=== PATIENT | male | born 1970 | race African-American/Black ===

== ENCOUNTER → 2018-08-22 | Outpatient (CLI) | payer OTHER ==
[~2018-08-22] MED LIST: CONRAY-43 43% 50ML VIAL (Q9960) As Ordered ONE; EXCETAB80 PO; GLUC750T22 PO; LISI40TA52 PO; MAPA500T2 PO; MOBI4TAB PO; OMEG100011 PO; PROHANCE 279.3MG/ML 5ML VIAL (A9576) As Ordered ONE
--- NOTE | 2018-08-22 16:54 | REP ---
MR arthrogram left hip: History: Pain in the left hip. History of labral tear. Comparison study August 04, 2014. Comparison MRI arthrography left hip is from August 04, 2014. Technique: Precontrast imaging includes coronal T1 and T2-weighted scans of both hips. Postcontrast small field of view high resolution axial, coronal and sagittal images are acquired in T1 and T2-weighted scans with fat saturation. MR arthrographic findings: Cortical and medullary bone signal intensity are normal in the proximal femurs bilaterally on pre injection imaging. There is no evidence to suggest avascular necrosis. No significant joint effusion is seen on either side. There is subcortical cyst formation in the acetabular region superiorly on both sides consistent with arthritis associated subcortical cyst formation. These are more pronounced or larger on the right than was present on the prior study and slightly more prominent on the left as well . The ligamentum teres is intact. The visualized bony pelvic ring is unremarkable. Post injection imaging shows good filling and enhancement of the left hip articulation. There is an unfortunate artifact extending through the superior labrum on oblique coronal T1-weighted fat sat images post injection. There is again noted to be some articular cartilage fraying in the superior labrum but no héctor tear is felt to be present allowing for the artifact. The fraying of the articular cartilage appears slightly more prominent than on the 2015 prior study. No loose body is apparent. Head neck junction morphology is felt to be normal. There is no evidence of juxta-articular mass. There is a small quantity of T2 hyperintensity adjacent to the greater trochanter on both sides on T2-weighted images. This may reflect some degree of tendonitis. Impression: Irregular fraying of the undersurface of the superior articular labral cartilage slightly more prominent than the prior study. 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 These have increased in extent and size on both sides. Electronically Signed by Omega Winn MD 08/22/2018 06:41 P
--- NOTE | 2018-09-01 09:42 | REP ---
Reason For Exam/Comment: Left hip pain, history labral tear Procedure: Left hip MRI arthrogram The procedure was performed by QUINTEN Singer, under the direct supervision of Dr. Winn. The benefits and risks including but not limited to pain, infection, bleeding and anaphylaxis were explained to the patient and informed consent was obtained both verbally and written. Directly prior to the start of the procedure, a formal timeout was completed in the procedure room. Technique: The left femoral neck was localized using fluoroscopic guidance. The skin was prepped and draped in the usual sterile fashion. 5 mL of 1% lidocaine was used as a local anesthetic. Using fluoroscopic guidance a 22-gauge spinal needle was inserted and advanced to the left femoral neck joint space . 1 mL of Conray 43 was injected to verify needle placement. 12 mL of a solution containing 20 ml of sterile saline and a 0.15 ml of ProHance was injected into the joint. The needle was removed and the patient was taken MRI for post procedural imaging. The patient tolerated the procedure well and there were no immediate complications. 0.1 minutes of fluoroscopy time was utilized for this procedure. Some fluoroscopic images are performed with last image hold technology. These images require no additional radiation. Reviewed by QUINTEN Caicedo 09/01/2018 08:18 A Electronically Signed by Omega Winn MD 09/01/2018 09:34 A
== END ==
LOC: M RADPRO 13:30
PROVIDERS: ATTEND Student in an Organized Health Care Education/Training Program
DX: M24.152 Other articular cartilage disorders, left hip (principal); M16.2 Bilateral osteoarthritis resulting from hip dysplasia; M25.552 Pain in left hip
CPT/HCPCS: 27093; 73723; 77002; A9576; Q9960

== ENCOUNTER 2018-11-25 11:06 | Emergency (ER) | payer OTHER, MEDICAID ==
[~2018-11-25] VITALS: Ht 180.3 cm; Wt 90.7 kg
[~2018-11-25 11:06] MED LIST changes: -CONRAY-43 43% 50ML VIAL (Q9960) As Ordered ONE; -PROHANCE 279.3MG/ML 5ML VIAL (A9576) As Ordered ONE
[2018-11-25] MEDS ORDERED: LISI20TA19 (11:12)
[2018-11-25] MEDS ORDERED: DIVA500T94 (11:12)
[2018-11-25 14:16] LABS: BASO % 0.6 % (0.0-1.0); EOS # 0.1 10^3/uL (0.0-0.5); EOS % 2.8 % (0.0-3.0); HEMATOCRIT 43.7 % (42.0-52.0); HEMOGLOBIN 14.7 g/dl (13.5-17.5); LYMPH # 1.3 10^3/uL (1.5-5.0); LYMPH % 35.6 % (24.0-44.0); MEAN CORPUSCULAR HEMOGLOBIN 27.1 pg (27.0-33.0); MEAN CORPUSCULAR HGB CONC 33.6 g/dl (32.0-36.5); MEAN CORPUSCULAR VOLUME 80.5 fl (80.0-96.0); MONO # 0.4 10^3/uL (0.0-0.8); MONO % 10.3 % (0.0-5.0); NEUTROPHILS # 1.8 10^3/uL (1.5-8.5); NEUTROPHILS % 50.4 % (36.0-66.0); PLATELET COUNT, AUTOMATED 153 10^3/uL (150-450); RED BLOOD COUNT 5.43 10^6/uL (4.30-6.10); WHITE BLOOD COUNT 3.6 10^3/uL (4.0-10.0)
--- NOTE | 2018-11-25 14:34 | REP ---
Chest x-ray: Two views. History: Persistent shortness of breath times 1 month . Comparison study: 09/16/2015 . Findings: The lungs are well inflated and free of infiltrate. The pleural angles are sharp. The heart size is normal. Pulmonary vasculature is not increased. No significant bony abnormality is seen. Impression: No active disease. Electronically Signed by Omega Winn MD 11/25/2018 02:26 P
[2018-11-25 14:38] LABS: ALBUMIN 4.3 GM/DL (3.2-5.2); ALT/SGPT 36 U/L (12-78); BILIRUBIN,TOTAL 0.4 MG/DL (0.2-1.0); BLOOD UREA NITROGEN 14 MG/DL (7-18); CALCIUM LEVEL 9.3 MG/DL (8.5-10.1); CARBON DIOXIDE LEVEL 31 MEQ/L (21-32); CHLORIDE LEVEL 103 MEQ/L (98-107); CK-MB VALUE MASS < 1.0 NG/ML (<3.6); CPK CREATINE PHOSPHOKINASE 155 U/L (39-308); CREATININE FOR GFR 1.17 MG/DL (0.70-1.30); GLOMERULAR FILTRATION RATE > 60.0 (>60); GLUCOSE, FASTING 79 MG/DL (70-100); MB/CK RELATIVE INDEX 0.65 (< OR =4); POTASSIUM SERUM 3.8 MEQ/L (3.5-5.1); SODIUM LEVEL 139 MEQ/L (136-145); TOTAL PROTEIN 7.5 GM/DL (6.4-8.2); TROPONIN I < 0.02 NG/ML (< 0.10)
[2018-11-25] MEDS ORDERED: VENTAER INH (15:02)
[2018-11-25 15:05] VITALS: BP 156/86
--- NOTE | 2018-11-26 07:34 | ECGEPIP ---
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
== END 2018-11-25 15:29 | disposition home or self-care (01) ==
LOC: M ED 11:06
DX: R06.02 Shortness of breath (principal); I10 Essential (primary) hypertension; Z79.899 Other long term (current) drug therapy

== ENCOUNTER → 2019-01-14 | Outpatient (CLI) | payer OTHER ==
[~2019-01-14] MED LIST changes: +DIVA500T94; +LISI20TA19; +VENTAER INH
--- NOTE | 2019-01-15 21:01 | ECHO ---
DATE OF PROCEDURE: 01/14/2019 Date of : 1970 Age: 49 Gender: Male Height: 71 inches Weight: 189 pounds Body surface area: 2.06 meters squared Outpatient. REFERRING PROVIDER: ELIANA Tony INDICATION: Dyspnea. MEASUREMENTS: 2D Measurements: RV: 3.1 cm LV: 4.4 cm Septum: 1.1 cm Posterior wall: 1.1 cm Aortic root: 3.0 cm LA: 3.7 cm LVEF: 75% Doppler Measurements: AV: 1.4 meters per second LVOT: 1.3 meters per second LVOT diameter: 2.1 cm MV-E: 76, A: 64, EA ratio: 1.2 Early mitral deceleration time: 176 milliseconds E prime: 7.7, A prime: 8.1, E/E prime ratio: 9.8 PV: 1.0 meters per second Pulmonary artery acceleration time: 134 milliseconds PASP: 22 mmHg IVC: 1.7 cm COMMENTS: Normal sinus rhythm without intraventricular conduction disturbance. M-mode and two-dimensional echocardiography was performed with pulsed, continuous wave, color flow and tissue Doppler studies. Normal left ventricular size, wall thickness and hyperkinetic wall motion. Normal left atrial size and Doppler assessment of LV diastolic function and estimated mean left atrial pressure. Normal right heart chamber sizes and motion and estimated pulmonary arterial pressure. Normal inferior vena cava (IVC) size and collapse against an elevated central venous pressure. Normal appearing and functioning valvular structures. Normal aortic root diameters. No apparent intracardiac mass or pericardial effusion.
== END ==
LOC: M CARPUL 08:14
PROVIDERS: ATTEND Physician Assistant Medical
DX: R06.00 Dyspnea, unspecified (principal)

== ENCOUNTER 2019-02-12 15:03 | Emergency (ER) | payer OTHER ==
[~2019-02-12] VITALS: Ht 180.3 cm; Wt 93.8 kg
[2019-02-12] MEDS ORDERED: ZONI25CA2 PO (15:10)
[2019-02-12] MEDS ORDERED: EXCETAB33 PO (15:10)
[2019-02-12] MEDS ORDERED: KETOROLAC 30 MG/ML VIAL (J1885) IV ONE (16:45)
[2019-02-12] MEDS ORDERED: METOCLOPRAMIDE INJ 10MG/2ML VIAL (J2765) IV ONE (16:45)
[2019-02-12] MEDS ORDERED: ACETAMINOPHEN 325 MG TAB PO ONE (16:45)
[2019-02-12] MEDS ORDERED: NS 1,000 ML IV ONE (17:00)
[2019-02-12 17:38] LABS: BASO % 0.5 % (0.0-1.0); EOS # 0.3 10^3/uL (0.0-0.5); HEMATOCRIT 43.2 % (42.0-52.0); HEMOGLOBIN 14.4 g/dl (13.5-17.5); LYMPH # 1.2 10^3/uL (1.5-5.0); LYMPH % 31.3 % (24.0-44.0); MEAN CORPUSCULAR HEMOGLOBIN 26.8 pg (27.0-33.0); MEAN CORPUSCULAR HGB CONC 33.3 g/dl (32.0-36.5); MEAN CORPUSCULAR VOLUME 80.3 fl (80.0-96.0); MONO # 0.2 10^3/uL (0.0-0.8); MONO % 5.9 % (0.0-5.0); NEUTROPHILS # 2.1 10^3/uL (1.5-8.5); PLATELET COUNT, AUTOMATED 141 10^3/uL (150-450); RED BLOOD COUNT 5.38 10^6/uL (4.30-6.10); WHITE BLOOD COUNT 3.7 10^3/uL (4.0-10.0)
[2019-02-12 17:55] LABS: BLOOD UREA NITROGEN 10 MG/DL (7-18); C REACTIVE PROTEIN QUANTITATIV < 0.30 MG/DL (0.00-0.30); CALCIUM LEVEL 9.3 MG/DL (8.5-10.1); CARBON DIOXIDE LEVEL 27 MEQ/L (21-32); CHLORIDE LEVEL 107 MEQ/L (98-107); CREATININE FOR GFR 1.15 MG/DL (0.70-1.30); ERYTHROCYTE SEDIMENTATION RATE 3 mm/hr (0-20); GLOMERULAR FILTRATION RATE > 60.0 (>56); GLUCOSE, FASTING 122 MG/DL (70-100); POTASSIUM SERUM 3.6 MEQ/L (3.5-5.1); SODIUM LEVEL 140 MEQ/L (136-145)
[2019-02-12 18:41] VITALS: BP 128/80
== END 2019-02-12 19:02 | disposition home or self-care (01) ==
LOC: M ED 15:03
DX: G43.909 Migraine, unspecified, not intractable, without status migrainosus (principal); Z79.51 Long term (current) use of inhaled steroids; Z79.82 Long term (current) use of aspirin
CPT/HCPCS: 80048; 85025; 85652; 86140; 96361; 96374; 96375; 99284; J1885; J2765

== ENCOUNTER → 2019-05-07 | Outpatient (CLI) | payer OTHER ==
[~2019-05-07] MED LIST changes: +EXCETAB33 PO; +METHACHOLINE KIT (J7674) INH ONE; +ZONI25CA13 PO
--- NOTE | 2019-05-07 09:46 | PFTRPT ---
Site: [facility], [address] [place], [address] ID: [id number] Name: DAJUAN BARRAGAN Visit Date: 05/07/2019 Second ID: [id number] Referring Doctor: BLACK Moscoso Marcus, M Reviewing Doctor: Trip Christy MD [place] Operator: Sveta PRATER RRT Age: 49 : 1970 Sex: Male Race: Black Height: 69.00 Inches Weight: 198.00 Lbs BSA: 2.06 Order IDs: [id number] Requested Test(s): <RESP-PFT.METH CHAL> Diagnosis: R06.00 puffs of albuterol for post bronchodilator. Review Status: Not Reviewed Pre-Bronch Post-Bronch Pred Actual %Pred Actual %Chng SPIROMETRY FVC (L) 4.04 4.05 100 3.95 -2 FEV1 (L) 3.23 3.45 106 3.25 -5 FEV1/FVC (%) 80 85 106 82 -3 FEF 25% (L/sec) 7.75 8.41 108 8.48 FEF 50% (L/sec) 5.00 4.87 97 5.18 6 FEF 75% (L/sec) 1.67 1.60 96 1.88 17 FEF 25-75% (L/sec) 3.23 4.06 125 4.63 13 FEF Max (L/sec) 8.57 10.25 119 8.48 -17 FIVC (L) 3.78 3.99 5 FIF 50% (L/sec) 4.97 5.09 102 4.09 -19 FIF Max (L/sec) 5.17 4.44 -14 Expiratory Time (sec) 6.28 6.31 Back Extrap Vol (L) 0.09 0.30 229 Time To FEFmax (sec) 0.051 0.115 126
== END ==
LOC: M CARPUL 08:37
PROVIDERS: ATTEND Physician Assistant
DX: R06.00 Dyspnea, unspecified (principal)
CPT/HCPCS: 94070; J7674

== ENCOUNTER → 2019-05-29 | Outpatient (CLI) | payer OTHER ==
[~2019-05-29] MED LIST changes: -METHACHOLINE KIT (J7674) INH ONE
--- NOTE | 2019-05-29 14:42 | REP ---
CT CHEST WITHOUT IV CONTRAST: CT chest performed without IV contrast. Sagittal and coronal reconstruction images are performed. Comparison is made with prior chest radiographs 11/25/2018. There is mild scattered fibrotic scarring throughout both lungs with no consolidation. There is no pulmonary edema or infiltrate. The heart is not enlarged. There is no pleural or pericardial effusion. No mediastinal or axillary adenopathy is seen. Thoracic aorta is normal in caliber. Visualized upper abdominal structure are unremarkable. Visualized osseous structures are unremarkable. IMPRESSION: Very mild scattered fibrotic scarring bilaterally. No other significant abnormality. Electronically Signed by Harshil Watson MD 05/29/2019 11:19 P
== END ==
LOC: M RAD 10:46
PROVIDERS: ATTEND Physician Assistant
DX: R91.8 Other nonspecific abnormal finding of lung field (principal); R06.00 Dyspnea, unspecified

== ENCOUNTER → 2020-04-22 | Outpatient (CLI) | payer OTHER ==
[~2020-04-22] MED LIST changes: -LISI20TA19; +LISI20TA35
--- NOTE | 2020-04-22 13:25 | REP ---
INDICATION: PAIN IN RIGHT WRIST. COMPARISON: None. TECHNIQUE: Three views of the right wrist are obtained. FINDINGS: Three views of the right wrist demonstrate overall normal mineralization. Joint spaces are preserved. Periarticular soft tissues are unremarkable. No fracture or subluxation is seen. IMPRESSION: Negative radiographs of the right wrist. <Electronically signed by Anton Winn > 04/22/20 [id number]
== END ==
LOC: M SOG 08:59
PROVIDERS: ATTEND Orthopaedic Surgery Sports Medicine
DX: M25.531 Pain in right wrist (principal)

== ENCOUNTER → 2020-05-25 | Outpatient (CLI) | payer OTHER ==
[~2020-05-25] MED LIST changes: +ISOVUE-300 61% 50ML VIAL As Ordered ONE; +PROHANCE 279.3MG/ML 5ML VIAL As Ordered ONE
--- NOTE | 2020-05-25 10:04 | REP ---
INDICATION: RT WRIST PAIN ? ULNAR TEAR. COMPARISON: RADIOGRAPHS 04/22/2020. TECHNIQUE: Multiple sequences obtained in the axial, coronal and sagittal planes. Post arthrogram sequences obtained in the axial, coronal and sagittal planes with T1 fat saturation. FINDINGS: Triangular fibrocartilage: There is a tear of the triangular fibrocartilage complex near the radial insertion. Scapholunate and lunatotriquetral ligaments: Intact. Flexor and extensor tendons: Intact. There is a tiny amount of fluid surrounding the extensor carpi radialis tendons at the level of the distal radius, likely of no clinical significance. At that same level there is a small amount of fluid surrounding the flexor pollicis longus tendon and flexor digitorum profundus tendons possibly indicating a mild degree of tenosynovitis. Carpal tunnel region:At the level of the hamate there is mild anterior bowing of the flexor retinaculum and there is somewhat increased signal of the median nerve. These could be signs of carpal tunnel syndrome. No ganglion cyst is seen. Joint fluid: No effusion. Distal radioulnar joint: Small amount of fluid present. Bone marrow: No edema or occult fracture. There is a 2 mm cyst in the capitate bone. IMPRESSION: There is a tear of the triangular fibrocartilage complex near the radial insertion. Mild fluid surrounding the flexor pollicis longus tendon and flexor digitorum profundus tendons possibly indicating a mild degree of tenosynovitis. At the level of the hamate there is mild anterior bowing of the flexor retinaculum and there is somewhat increased signal of the median nerve. These could be signs of carpal tunnel syndrome. <Electronically signed by Harshil Watson > 05/25/20 1001
--- NOTE | 2020-05-25 17:44 | REP ---
INDICATION: RT WRIST PAIN ? ULNAR TEAR. COMPARISON: None TECHNIQUE: The procedure was performed by Nidhi Avery [facility], under the direct supervision of Dr. Watson. The benefits and risks of the procedure were explained to the patient, and an informed consent was obtained. Directly prior to the start of the procedure, a formal time-out was completed in the procedure room. The right radioscaphoid joint space was localized using fluoroscopic guidance. The skin was prepped and draped in a sterile fashion. Approximately 1 mL of 1% Lidocaine 10 mg/ml was used as a local anesthetic. Using fluoroscopic guidance, this same 25 gauge needle was inserted and advanced into the right radioscaphoid joint space. Approximately 0.5 mL of Isovue 300 was injected to verify placement. Approximately 5 mL of a solution containing 20 mL of sterile saline and 0.15 mL of ProHance was injected into the joint space. The needle was removed and the patient was taken to MRI for post procedural imaging. FINDINGS: The patient tolerated the procedure well and there were no immediate complications. IMPRESSION: 1. MRI arthrogram injection under fluoroscopic guidance of the right radioscaphoid joint space. 0.1 minutes of fluoroscopy time was utilized for this procedure. Some fluoroscopic images are performed with last image hold technology. These images require no additional radiation. <Electronically signed by Nidhi Avery > 05/25/20 1048 <Electronically signed by Harshil Watson > 05/25/20 0117
== END ==
LOC: M RADPRO 06:32
PROVIDERS: ATTEND Orthopaedic Surgery Sports Medicine
DX: M25.531 Pain in right wrist (principal); M67.80 Other specified disorders of synovium and tendon, unspecified site; S63.591A Other specified sprain of right wrist, initial encounter; X58.XXXA Exposure to other specified factors, initial encounter; Y92.89 Other specified places as the place of occurrence of the external cause; Y93.89 Activity, other specified; Y99.8 Other external cause status
CPT/HCPCS: 25246; 73223; 77002; A9576; Q9967

== ENCOUNTER → 2020-06-01 | Outpatient (CLI) | payer MEDICAID, OTHER, SELFPAY ==
[~2020-06-01] MED LIST changes: -ISOVUE-300 61% 50ML VIAL As Ordered ONE; -PROHANCE 279.3MG/ML 5ML VIAL As Ordered ONE
[2020-06-03 05:06] LABS: MUMPS VIRUS IgG ANTIBODY >300.0 AU/mL (Immune >10.9)
== END ==
LOC: M WUC 14:44
PROVIDERS: ATTEND Physician Assistant
DX: Z02.1 Encounter for pre-employment examination (principal)

== ENCOUNTER → 2020-06-06 | Outpatient (CLI) | payer MEDICAID, OTHER, SELFPAY ==
--- NOTE | 2020-06-07 09:34 | REP ---
INDICATION: TB SCREENING COMPARISON: 11/25/2018 TECHNIQUE: PA and lateral. FINDINGS: The mediastinum and cardiac silhouette are normal. The lung simmons are clear and without acute consolidation, effusion, or pneumothorax. The skeletal structures are intact and normal. IMPRESSION: No acute cardiopulmonary process. <Electronically signed by Doug Paniagua > 06/07/20 0922
== END ==
LOC: M WUC 14:21
PROVIDERS: ATTEND Physician Assistant
DX: Z11.1 Encounter for screening for respiratory tuberculosis (principal)

== ENCOUNTER → 2020-09-08 | Outpatient (REF) | payer OTHER ==
[2020-09-08 11:04] LABS: SEMEN APPEARANCE OPAQUE (OPAQUE); SEMEN VISCOSITY LIQUID (LIQUID); SEMEN VOLUME 5.8 ml (2.0-5.0); SPERM CONCENTRATION 73.5 M/ml (>=15.0); WBC CONCENTRATION <=1 M/ml (<=1 M/ml)
== END ==
LOC: M LAB REF 10:29
PROVIDERS: ATTEND Physician Assistant
DX: N52.9 Male erectile dysfunction, unspecified (principal)

== ENCOUNTER 2020-10-07 04:05 | Emergency (ER) | payer OTHER ==
[~2020-10-07] VITALS: Ht 180.3 cm; Wt 91.8 kg
[2020-10-07 06:58] LABS: BASO % 0.8 % (0.0-1.0); EOS # 0.1 10^3/uL (0.0-0.5); EOS % 3.3 % (0.0-3.0); HEMATOCRIT 40.9 % (42.0-52.0); HEMOGLOBIN 13.8 g/dl (13.5-17.5); LYMPH # 1.1 10^3/uL (1.5-5.0); LYMPH % 26.8 % (24.0-44.0); MEAN CORPUSCULAR HEMOGLOBIN 26.6 pg (27.0-33.0); MEAN CORPUSCULAR HGB CONC 33.7 g/dl (32.0-36.5); MONO # 0.4 10^3/uL (0.0-0.8); MONO % 10.5 % (2.0-8.0); NEUTROPHILS # 2.3 10^3/uL (1.5-8.5); NEUTROPHILS % 58.3 % (36.0-66.0); PLATELET COUNT, AUTOMATED 143 10^3/uL (150-450); RED BLOOD COUNT 5.18 10^6/uL (4.30-6.10)
[2020-10-07 07:37] LABS: ALBUMIN 3.8 GM/DL (3.2-5.2); ALT/SGPT 36 U/L (12-78); BILIRUBIN,DIRECT 0.1 MG/DL (0.0-0.2); BILIRUBIN,TOTAL 0.3 MG/DL (0.2-1.0); CK-MB VALUE MASS < 1.0 NG/ML (<3.6); CPK CREATINE PHOSPHOKINASE 162 U/L (39-308); LIPASE 128 U/L (73-393); MB/CK RELATIVE INDEX 0.62 (< OR =4); TROPONIN I < 0.02 NG/ML (< 0.10)
--- NOTE | 2020-10-07 07:59 | ECGEPIP ---
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
[2020-10-07 08:04] LABS: BLOOD UREA NITROGEN 11 MG/DL (7-18); CALCIUM LEVEL 8.8 MG/DL (8.5-10.1); CARBON DIOXIDE LEVEL 28 MEQ/L (21-32); CHLORIDE LEVEL 105 MEQ/L (98-107); CREATININE FOR GFR 1.16 MG/DL (0.70-1.30); FREE T4 0.95 NG/DL (0.76-1.46); GLOMERULAR FILTRATION RATE > 60.0 (>56); GLUCOSE, FASTING 107 MG/DL (70-100); MAGNESIUM LEVEL 2.1 MG/DL (1.8-2.4); PHOSPHORUS LEVEL 3.1 MG/DL (2.5-4.9); POTASSIUM SERUM 3.9 MEQ/L (3.5-5.1); SODIUM LEVEL 138 MEQ/L (136-145)
--- NOTE | 2020-10-07 08:17 | REP ---
INDICATION: weakness. COMPARISON: 06/06/2020 TECHNIQUE: PA and lateral FINDINGS: The superior mediastinal structures are midline. The cardiac silhouette is unremarkable in size, shape, and position. The diaphragmatic surfaces of the lungs are regular, and the costophrenic angles are clear. The pulmonary simmons are clear. The imaged osseous structures are intact. IMPRESSION: There is no acute cardiopulmonary disease. <Electronically signed by Garry Collins > 10/07/20 0814
[2020-10-07 08:37] LABS: RSV AMPLIFICATION NEGATIVE (NEGATIVE)
[2020-10-07 09:44] VITALS: BP 133/87
== END 2020-10-07 09:52 | disposition home or self-care (01) ==
LOC: M ED 04:05
DX: R53.1 Weakness (principal); I10 Essential (primary) hypertension; J45.909 Unspecified asthma, uncomplicated; Z79.899 Other long term (current) drug therapy; Z79.82 Long term (current) use of aspirin

== ENCOUNTER 2021-01-14 09:59 | Emergency (ER) | payer OTHER ==
[~2021-01-14] VITALS: Ht 180.3 cm; Wt 93.8 kg
--- OUTSIDE RECORDS SUMMARY | 2021-01-14 10:06 | CCD | Continuity of Care Document ---
Author Author Luisito BERNARD M.D. Organization Unknown Address [address], [place] [address] Phone [phone] Care Team Providers Care Hands Parter Name Role Phone [facility] [phone] Problems Active Problems Provider Date Essential hypertension Robb Bernard M.D. Onset: 06/26 Uncomplicated moderate persistent asthma Robb Bernard M.D. Onset: 07/19/2020 Allergic rhinitis due to house dust mite Robb Bernard M.D. Onset: 07/19/2020 Note: 4++ reaction to dust mites and tanika kroaches on intradermal test. Allergic rhinitis due to animals Robb Bernard M.D. O nset: 07/19/2020 Note: 3+ positive reaction to cat dande r and dog dander on intradermal test. Allergic rhinitis due to pollen Robb Bernard M.D. On set: 07/19/2020 Note: 4+ positive reaction to ragweed po llen, weed pollen, tree mix #1 (birch, oak, maple) and tree mix #2 (karmen, cottonwood, elm, pine) on intradermal test. Social History Type Date Description Comments Sex Unknown Tobacco Use Reviewed: 11/21/20 Patient has never smoked Smoking Status Reviewed: 11/21/20 Patient has never smoked Allergies, Adverse Reactions, Alerts Description No Known Drug Allergies Medications Active Medications SIG Qnty Indications Ordering Provide r Date Fluticasone Propionate 50mcg/Act Suspension spray 2 sprays (100 mcg) in each nostril by intranasal route once daily in the evening 48gm J30.89 Robb Bernard M.D. 2020 Montelukast Sodium 10mg Tablets Take 1 tablet once daily Unknown Lisinopril-Hydrochlorothiazide 20-12.5mg Tablets Take 1 tablet once daily Unknown Meloxicam 15mg Tablets Take 1 tablet once daily as needed Unknown Zonisamide 50mg Capsules Take 1 capsule once daily Unknown Ergocalciferol 1.25mg (24161 Ut) C apsules Unknown Symbicort 160-4.5mcg/Act Aerosol inhale 2 puffs twice daily Unknown Proair HFA 108(90Base) mcg/Act Aer osol inhale 2 puffs every 4-6 hours as needed Unknown Immunizations Description No Information Available Vital Signs Date Vital Result Comment 11/21/2020 10:01am Weight 202.25 lb Height 68.5 inches 5'8.50" Heart Rate 62 /min Respiratory Rate 18 /min BP Systolic 126 mmHg BP Diastolic 78 mmHg BMI (Body Mass Index) 30.3 kg/m2 07/19/2020 8:39am Weight 210.50 lb Height 68.5 inches 5'8.50" Heart Rate 64 /min Respiratory Rate 18 /min BP Systolic 140 mmHg BP Diastolic 89 mmHg BMI (Body Mass Index) 31.5 kg/m2 Results Description No Information Available Procedures Date Code Description Status 11/21/2020 77204 Office/Outpatient Established Lo w MDM 20-29 Min Completed 11/21/2020 07926 Bronchodilation Resp onsiveness Spirometry Pre/Post Bronchodil Adm Completed 07/19/2020 88304 Office/Outpatient New Moderate M DM 45-59 Minutes Completed 07/19/2020 43717 Office/Outpatient New Low MDM 30 -44 Minutes Completed 07/19/2020 67167 Allergy Tests Intrad ermal W/ Allergenic Extr Immediate Reaction Completed 07/19/2020 20399 Allergy Tests Percutaneous W/ Al lergenic Extracts Completed Medical Devices Description No Information Available Encounters Type Date Location Provider Dx Diagnosis Office Visit 11/21/2020 10:00a Main Office Robb Bernard M.D. J30.89 Other allergic rhinitis J30.81 Allergic rhinitis due to ani mal (cat) (dog) hair and dander J30.1 Allergic rhinitis due to ezekiel padmini J45.40 Moderate persistent asthma, uncomplicated Assessments Date Code Description Provider 11/21/2020 J30.89 Allergic rhinitis due to house d ust mite Robb Bernard M.D. 11/21/2020 J30.81 Allergic rhinitis due to animals Robb Bernard M.D. 11/21/2020 J30.1 Allergic rhinitis due to pollen Robb Bernard M.D. 11/21/2020 J45.40 Moderate persistent asthma, unco mplicated Robb Bernard M.D. Plan of Treatment Future Appointment(s):* 05/22/2021 3:30 pm - Robb Bernard M.D. at Main Office 11/21/2020 - Robb Bernard M.D.* J30.89 Allergic rhinitis due to house dust mite* Recommendations:* Effective allergen avoidance measures were reviewed and discussed. If his rhinitis symptoms become more persistent, it was recommended that he use Flonase nasal spray on a consistent, daily basis every evening for it to be effective. He should continue on daily Singulair as directed. Singulair should help not only with his asthma, but also with the nasal congestion associated with his allergic rhinitis. Risks/benefits associated with the use of Singulair were reviewed and discussed. He may use oral antihistamine as needed for itching and/or sneezing. Allergen immunotherapy may be considered if his symptoms fail to adequately respond to the treatment regimen as outlined. * J30.81 Allergic rhinitis due to animals* Recommendations:* Effective allergen avoidance measures reviewed and recommended. See additional recommendations above. * J30.1 Allergic rhinitis due to pollen* Recommendations:* Effective allergen avoidance measures were reviewed and recommended. See additional recommendations above. * J45.40 Moderate persistent asthma, uncomplicated* Recommendations:* Continue on present regimen as directed by pulmonology. Follow-up with their office as directed. * All * Follow up:* 6 months. Sooner if needed. Functional Status Description No Information Available Mental Status Description No Information Available Referrals Refer to Reason for Referral Status Appt Date Robb Bernard M.D. Created [address], [place] [address] [phone]
--- OUTSIDE RECORDS SUMMARY | 2021-01-14 10:06 | CCD | Continuity of Care Document ---
Author Author Luisito BERNARD M.D. Organization Unknown Address [address], [place] [address] Phone [phone] Care Team Providers Care It Operations Analyst Name Role Phone [facility] Problems Active Problems Provider Date Essential hypertension [...] 1 capsule once daily Unknown Ergocalciferol 1.25mg (39489 Ut) C apsules Unknown Symbicort 160-4.5mcg/Act Aerosol [...] Available Procedures Date Code Description Status 11/21/2020 62170 Office/Outpatient Established Lo w MDM 20-29 Min Completed 11/21/2020 93145 Bronchodilation Resp onsiveness Spirometry Pre/Post Bronchodil Adm Completed 07/19/2020 56931 Office/Outpatient New Moderate M DM 45-59 Minutes Completed 07/19/2020 31357 Office/Outpatient New Low MDM 30 -44 Minutes Completed 07/19/2020 40556 Allergy Tests Intrad ermal W/ Allergenic Extr Immediate Reaction Completed 07/19/2020 43934 Allergy Tests Percutaneous W/ Al lergenic Extracts [...] mplicated Robb Bernard M.D. Plan of Treatment 11/21/2020 - Robb Bernard M.D.* J30.89 Allergic rhinitis due to house dust mite * J30.81 Allergic rhinitis due to animals* [...] Status Appt Date Robb Bernard M.D. Created [address] [place] [id number] [phone]
--- OUTSIDE RECORDS SUMMARY | 2021-01-14 10:07 | CCD ---
Author Author [facility] Organization [facility] Address Unknown Phone Unavailable Care Team Providers Care Outer Diameter Technician Name Role Phone Leandro MCRAE Unavailable Unavailable LETTIERE, Leandro MONROY Unavailable Unavailable LETTIERE, Leandro MONROY Unavailable Unavailable LETTIERE, Leandro MONROY Unavailable Unavailable LETTIERE, Leandro MONROY Unavailable Unavailable LETTIERE, Leandro MONROY Unavailable Unavailable LETTIERE, Leandro MONROY Unavailable Unavailable LETTIERE, Leandro MONROY Unavailable Unavailable LETTIERE, A LEXY PA Unavailable Unavailable LETTIERE, A LEXY PA Unavailable Unavailable LETTIERE, A LEXY PA Unavailable Unavailable LETTIERE, A LEXY PA Unavailable Unavailable LETTIERE, A LEXY PA Unavailable Unavailable LETTIERE, A LEXY PA Unavailable Unavailable LETTIERE, A LEXY PA Unavailable Unavailable LETTIERE, A LEXY PA Unavailable Unavailable LETTIERE, A LEXY PA Unavailable Unavailable LETTIERE, A LEXY PA Unavailable Unavailable LETTIERE, A LEXY PA Unavailable Unavailable LETTIERE, A LEXY PA Unavailable Unavailable LETTIERE, A LEXY PA Unavailable Unavailable LETTIERE, A LEXY PA Unavailable Unavailable LETTIERE, A LEXY PA Unavailable Unavailable LETTIERE, A LEXY PA Unavailable Unavailable LETTIERE, A LEXY PA Unavailable Unavailable LETTIERE, A LEXY PA Unavailable Unavailable LETTIERE, A LEXY PA Unavailable Unavailable LETTIERE, A LEXY PA Unavailable Unavailable LETTIERE, A LEXY PA Unavailable Unavailable LETTIERE, A LEXY PA Unavailable Unavailable LETTIERE, A LEXY PA Unavailable Unavailable MANDO BERNARD MD Unavailable Unavailable CHRMANDO COLBERT MD Unavailable Unavailable MANDO BERNARD MD Unavailable Unavailable MANDO BERNARD MD Unavailable Unavailable CHROSTMANDO NORMAN MD Unavailable Unavailable CHROSTMANDO NORMAN MD Unavailable Unavailable CHRMANDO COLBERT MD Unavailable Unavailable CHROSTMANDO NORMAN MD Unavailable Unavailable CHRMANDO COLBERT MD Unavailable Unavailable CHROSTMANDO NORMAN MD Unavailable Unavailable CHROSTMANDO NORMAN MD Unavailable Unavailable CHROSTMANDO NORMAN MD Unavailable Unavailable CHROSTMANDO NORMAN MD Unavailable Unavailable CHROSTMANDO NORMAN MD Unavailable Unavailable CHROSTMANDO NORMAN MD Unavailable Unavailable CHROSTMANDO NORMAN MD Unavailable Unavailable CHROSTMANDO NORMAN MD Unavailable Unavailable CHROSTMANDO NORMAN MD Unavailable Unavailable CHROSTMANDO NORMAN MD Unavailable Unavailable CHROSTMANDO NORMAN MD Unavailable Unavailable CHROSTMANDO NORMAN MD Unavailable Unavailable CHROSTMANDO NORMAN MD Unavailable Unavailable CHROSTMANDO NORMAN MD Unavailable Unavailable CHROSTMANDO NORMAN MD Unavailable Unavailable CHROSTMANDO NORMAN MD Unavailable Unavailable CHROSTMANDO NORMAN MD Unavailable Unavailable CHROSTMANDO NORMAN MD Unavailable Unavailable CHROSTMANDO NORMAN MD Unavailable Unavailable CHROSTMANDO NORMAN MD Unavailable Unavailable CHROSTMANDO NORMAN MD Unavailable Unavailable CHROSTMANDO NORMAN MD Unavailable Unavailable CHRMANDO COLBERT MD Unavailable Unavailable CHRMANDO COLBERT MD Unavailable Unavailable CHRMANDO COLBERT MD Unavailable Unavailable CHRMANDO COLBERT MD Unavailable Unavailable CHRMANDO COLBERT MD Unavailable Unavailable CHRMANDO COLBERT MD Unavailable Unavailable CHRMANDO COLBERT MD Unavailable Unavailable CHRMANDO COLBERT MD Unavailable Unavailable MollisonLito MD Unavailable Unavailable Mollison, Lito Menard MD Unavailable Unavailable Mollison, Lito Menard MD Unavailable Unavailable Mollison, Lito Menard MD Unavailable Unavailable Mollison, Lito Menard MD Unavailable Unavailable MollisonLito MD Unavailable Unavailable Mollison, Lito Menard MD Unavailable Unavailable Mollison, Lito Menard MD Unavailable Unavailable Mollison, Lito Menard MD Unavailable Unavailable Mollison, Lito Menard MD Unavailable Unavailable Mollison, Lito Menard MD Unavailable Unavailable Mollison, Lito Menard MD Unavailable Unavailable Mollison, Lito Menard MD Unavailable Unavailable MollisonLito MD Unavailable Unavailable Mollison, Lito Menard MD Unavailable Unavailable Mollison, Lito Menard MD Unavailable Unavailable Mollison, Lito Menard MD Unavailable Unavailable Mollison, Lito Menard MD Unavailable Unavailable MollisonLito MD Unavailable Unavailable MollisonLito MD Unavailable Unavailable MollisonLito MD Unavailable Unavailable MollisonLito MD Unavailable Unavailable MollisonLito MD Unavailable Unavailable MollisonLito MD Unavailable Unavailable Mollison, Lito Menard MD Unavailable Unavailable Mollison, Lito Menard MD Unavailable Unavailable Mollison, Lito Menard MD Unavailable Unavailable MollisonLito MD Unavailable Unavailable MollisonLito MD Unavailable Unavailable MollisonLito MD Unavailable Unavailable Mark SURESH MD Unavailable Unavailable Mark SURESH MD Unavailable Unavailable Mark SURESH MD Unavailable Unavailable Mark SURESH MD Unavailable Unavailable Mark SURESH MD Unavailable Unavailable Mark SURESH MD Unavailable Unavailable Mark SURESH MD Unavailable Unavailable Mark SURESH MD Unavailable Unavailable Mark SURESH MD Unavailable Unavailable Mark SURESH MD Unavailable Unavailable Mark SURESH MD Unavailable Unavailable Mark SURESH MD Unavailable Unavailable Mark SURESH MD Unavailable Unavailable Mark SURESH MD Unavailable Unavailable Mark SURESH MD Unavailable Unavailable Mark SURESH MD Unavailable Unavailable Lakshmi Cheney Unavailable Unavailable Lakshmi Cheney Unavailable Unavailable Cheney, Lakshmi Isi PA Unavailable Unavailable Cheney, Lakshmi Isi PA Unavailable Unavailable Cheney, Lakshmi Isi PA Unavailable Unavailable Cheney, Lakshmi Isi PA Unavailable Unavailable Cheney, Lakshmi Isi PA Unavailable Unavailable Cheney, Lakshmi Isi PA Unavailable Unavailable Cheney, Lakshmi Isi PA Unavailable Unavailable Cheney, Lakshmi Isi PA Unavailable Unavailable Moorefield, Arnold MD Unavailable Unavailable Moorefield, Arnold MD Unavailable Unavailable Moorefield, Arnold MD Unavailable Unavailable Moorefield, Arnold MD Unavailable Unavailable Moorefield, Arnold MD Unavailable Unavailable Moorefield, Arnold MD Unavailable Unavailable Moorefield, Arnold MD Unavailable Unavailable Moorefield, Arnold MD Unavailable Unavailable Moorefield, Arnold MD Unavailable Unavailable Moorefield, Arnold MD Unavailable Unavailable Moorefield, Arnold MD Unavailable Unavailable Moorefield, Arnold MD Unavailable Unavailable Moorefield, Arnold MD Unavailable Unavailable Moorefield, Arnold MD Unavailable Unavailable Moorefield, Arnold MD Unavailable Unavailable Moorefield, Arnold MD Unavailable Unavailable Moorefield, Arnold MD Unavailable Unavailable Moorefield, Arnold MD Unavailable Unavailable Moorefield, Arnold MD Unavailable Unavailable Moorefield, Arnold MD Unavailable Unavailable Moorefield, Arnold MD Unavailable Unavailable Moorefield, Arnold MD Unavailable Unavailable Moorefield, Arnold MD Unavailable Unavailable Moorefield, Arnold MD Unavailable Unavailable Moorefield, Arnold MD Unavailable Unavailable Moorefield, Arnold MD Unavailable Unavailable Moorefield, Arnold MD Unavailable Unavailable Moorefield, Arnold MD Unavailable Unavailable Moorefield, Arnold MD Unavailable Unavailable Moorefield, Arnold MD Unavailable Unavailable Moorefield, Arnold MD Unavailable Unavailable OBEN, T MARJAN Unavailable Unavailable OBEN, T MARJAN Unavailable Unavailable OBEN, T MARJAN Unavailable Unavailable OBEN, T MARJAN MD Unavailable Unavailable OBEN, T MARJAN MD Unavailable Unavailable OBEN, T MARJAN MD Unavailable Unavailable OBEN, T MARJAN MD Unavailable Unavailable OBEN, T MARJAN MD Unavailable Unavailable OBEN, T MARJAN Unavailable Unavailable OBEN, T MARJAN MD Unavailable Unavailable OBEN, T MARJAN MD Unavailable Unavailable OBEN, T MARJAN MD Unavailable Unavailable OBEN, T MARJAN MD Unavailable Unavailable OBEN, T MARJAN MD Unavailable Unavailable OBEN, T MARJAN MD Unavailable Unavailable OBEN, T MARJAN MD Unavailable Unavailable OBEN, T MARJAN MD Unavailable Unavailable OBEN, T MARJAN MD Unavailable Unavailable OBEN, T MARJAN MD Unavailable Unavailable OBEN, T MARJAN MD Unavailable Unavailable OBEN, T MARJAN MD Unavailable Unavailable OBEN, T MARJAN MD Unavailable Unavailable OBEN, T MARJAN MD Unavailable Unavailable OBEN, T MARJAN MD Unavailable Unavailable OBEN, T MARJAN MD Unavailable Unavailable OBEN, T MARJAN MD Unavailable Unavailable OBEN, T MARJAN MD Unavailable Unavailable OBEN, T MARJAN MD Unavailable Unavailable OBEN, T MARJAN MD Unavailable Unavailable OBEN, T MARJAN MD Unavailable Unavailable OBEN, T MARJAN MD Unavailable Unavailable OBEN, T MARJAN MD Unavailable Unavailable OBEN, T MARJAN MD Unavailable Unavailable OBEN, T MARJAN MD Unavailable Unavailable OBEN, T MARJAN MD Unavailable Unavailable OBEN, T MARJAN MD Unavailable Unavailable OBEN, T MARJAN MD Unavailable Unavailable OBEN, T MARJAN MD Unavailable Unavailable OBEN, T MARJAN MD Unavailable Unavailable OBEN, T MARJAN MD Unavailable Unavailable OBEN, T MARJAN MD Unavailable Unavailable OBEN, T MARJAN MD Unavailable Unavailable OBEN, T MARJAN MD Unavailable Unavailable OBEN, T MARJAN MD Unavailable Unavailable OBEN, T MARJAN MD Unavailable Unavailable OBEN, T MARJAN MD Unavailable Unavailable OBEN, T MARJAN MD Unavailable Unavailable OBEN, T MARJAN MD Unavailable Unavailable OBEN, T MARJAN MD Unavailable Unavailable OBEN, T MARJAN MD Unavailable Unavailable OBEN, T MARJAN MD Unavailable Unavailable OBEN, T MARJAN MD Unavailable Unavailable OBEN, T MARJAN MD Unavailable Unavailable OBEN, T MARJAN MD Unavailable Unavailable OBEN, T MARJAN MD Unavailable Unavailable OBEN, T MARJAN MD Unavailable Unavailable OBEN, T MARJAN MD Unavailable Unavailable OBEN, T MARJAN MD Unavailable Unavailable OMI DANIO Unavailable Unavailable Mark SURESH MD Unavailable Unavailable Mark SURESH MD Unavailable Unavailable Mark SURESH MD Unavailable Unavailable Mark SURESH MD Unavailable Unavailable Mark SURESH MD Unavailable Unavailable Mark SURESH MD Unavailable Unavailable Mark SURESH MD Unavailable Unavailable Mark SURESH MD Unavailable Unavailable Mark SURESH MD Unavailable Unavailable Mark SURESH MD Unavailable Unavailable Mark SURESH MD Unavailable Unavailable Mark SURESH MD Unavailable Unavailable Mark SURESH MD Unavailable Unavailable Mark SURESH MD Unavailable Unavailable Mark SURESH MD Unavailable Unavailable Mark SURESH MD Unavailable Unavailable OBEN, T MARJAN MD Unavailable Unavailable OBEN, T MARJAN MD Unavailable Unavailable OBEN, T MARJAN MD Unavailable Unavailable OBEN, T MARJAN MD Unavailable Unavailable OBEN, T MARJAN MD Unavailable Unavailable OBEN, T MARJAN MD Unavailable Unavailable OBEN, T MARJAN MD Unavailable Unavailable OBEN, T MARJAN MD Unavailable Unavailable OBEN, T MARJAN MD Unavailable Unavailable OBEN, T MARJAN MD Unavailable Unavailable OBEN, T MARJAN MD Unavailable Unavailable OBEN, T MARJAN MD Unavailable Unavailable OBEN, T MARJAN MD Unavailable Unavailable OBEN, T MARJAN MD Unavailable Unavailable OBEN, T MARJAN MD Unavailable Unavailable OBEN, T MARJAN MD Unavailable Unavailable OBEN, T MARJAN MD Unavailable Unavailable OBEN, T MARJAN MD Unavailable Unavailable OBEN, T MARJAN MD Unavailable Unavailable OBEN, T MARJAN MD Unavailable Unavailable OBEN, T MARJAN MD Unavailable Unavailable OBEN, T MARJAN MD Unavailable Unavailable OBEN, T MARJAN MD Unavailable Unavailable OBEN, T MARJAN MD Unavailable Unavailable OBEN, T MARJAN MD Unavailable Unavailable OBEN, T MARJAN MD Unavailable Unavailable OBEN, T MARJAN MD Unavailable Unavailable OBEN, T MARJAN MD Unavailable Unavailable OBEN, T MARJAN MD Unavailable Unavailable OBEN, T MARJAN MD Unavailable Unavailable OBEN, T MARJAN MD Unavailable Unavailable OBEN, T MARJAN MD Unavailable Unavailable OBEN, T MARJAN MD Unavailable Unavailable OBEN, T MARJAN MD Unavailable Unavailable OBEN, T MARJAN MD Unavailable Unavailable OBEN, T MARJAN MD Unavailable Unavailable OBEN, T MARJAN MD Unavailable Unavailable OBEN, T MARJAN MD Unavailable Unavailable OBEN, T MARJAN MD Unavailable Unavailable OBEN, T MARJAN MD Unavailable Unavailable OBEN, T MARJAN MD Unavailable Unavailable OBEN, T MARJAN MD Unavailable Unavailable OBEN, T MARJAN MD Unavailable Unavailable OBEN, T MARJAN MD Unavailable Unavailable OBEN, T MARJAN MD Unavailable Unavailable OBEN, T MARJAN MD Unavailable Unavailable OBEN, T MARJAN MD Unavailable Unavailable OBEN, T MARJAN MD Unavailable Unavailable OBEN, T MARJAN MD Unavailable Unavailable OBEN, T MARJAN MD Unavailable Unavailable OBEN, T MARJAN MD Unavailable Unavailable OBEN, T MARJAN MD Unavailable Unavailable OBEN, T MARJAN MD Unavailable Unavailable OBEN, T MARJAN MD Unavailable Unavailable OBEN, T MARJAN MD Unavailable Unavailable OBEN, T MARJAN MD Unavailable Unavailable OBEN, T MARJAN MD Unavailable Unavailable OBEN, T MARJAN MD Unavailable Unavailable Re-disclosure Warning The records that you are about to access may contain information from federally-assisted alcohol or drug abuse programs. If such information is present, then the following federally mandated warning applies: This information has been disclosed to you from records protected by federal confidentiality rules (42 CFR part 2). The federal rules prohibit you from making any further disclosure of this information unless further disclosure is expressly permitted by the written consent of the person to whom it pertains or as otherwise permitted by 42 CFR part 2. A general authorization for the release of medical or other information is NOT sufficient for this purpose. The Federal rules restrict any use of the information to criminally investigate or prosecute any alcohol or drug abuse patient.The records that you are about to access may contain highly sensitive health information, the redisclosure of which is protected by Article 27-F of the [facility] Public Health law. If you continue you may have access to information: Regarding HIV / AIDS; Provided by facilities licensed or operated by the [facility] Office of Mental Health; or Provided by the [facility] Office for People With Developmental Disabilities. If such information is present, then the following [facility] mandated warning applies: This information has been disclosed to you from confidential records which are protected by state law. State law prohibits you from making any further disclosure of this information without the specific written consent of the person to whom it pertains, or as otherwise permitted by law. Any unauthorized further disclosure in violation of state law may result in a fine or usp sentence or both. A general authorization for the release of medical or other information is NOT sufficient authorization for further disc losure. Allergies and Adverse Reactions Type Description Substance Reaction Status Data Source(s ) No Known Drug Allergies No Known Drug Allergies [facility] Propensity to adverse reactions NO KNOWN ALLERGIES NO KNOWN ALLERGIES [facility] Encounters Encounter Providers Location Date Indications Data Source(s ) Outpatient Attender: MANDO BERNARD MD Main Office 11/21/2020 10:00:00 AM EDT [facility] ([facility] Outpatient Attender: JUAN SURESH MDConsultant: BEE EMERY 10/04/2020 08:00:00 AM EDT - 10/04/2020 10:38:00 AM EDT [facility] Patient discharged. Outpatient Attender: JUAN SURESH MDConsultant: BEE OR TIZ 09/21/2020 06:51:25 AM EDT - 09/22/2020 05:08:00 PM EDT [facility] Patient discharged. Outpatient Attender: MARJAN SINGLETON MDConsultant: BEE Resendiz 09/20/2020 04:16:00 PM EDT - 09/20/2020 04:16:00 PM EDT [facility] Outpatient Attender: MARJAN SINGLETON MD Family Practice 09/20/2020 03:45:0 0 PM EDT [facility] ([facility]) Outpatient Attender: MARJAN SINGLETON MDConsultant: BEE GAMINOTI Martín 09/06/2020 02:22:00 PM EDT - 09/06/2020 02:22:00 PM EDT [facility] Outpatient Attender: JUAN SURESH MD [facility] 08/24/2020 1 1:00:00 AM EDT [facility] ([facility]) Outpatient Attender: JUAN SURESH MDConsultant: BEE OR TIMartín 08/24/2020 10:58:00 AM EDT - 08/24/2020 10:58:00 AM EDT [facility] Outpatient Attender: Arnold Young/Linda/Rodrigo/Cammied l 08/04/2020 08:00:00 AM EDT [facility] ([facility]) Outpatient Attender: MANDO BERNARD MD Main Office 07/19/2020 08:30:00 AM EDT [facility] Outpatient Attender: Derian Young/Linda/Rodrigo/Re indl 06/13/2020 01:00:00 PM EDT [facility] ([facility]) Outpatient Attender: LEXY Mota norma 06/01/2020 02:40:00 PM EDT [facility] Outpatient Attender: Derian Young/Linda/Rodrigo/Nyasia indl 04/22/2020 08:00:00 AM EST [facility] ([facility] Outpatient Attender: Isi green 02/12/2020 05:05:00 PM EST [facility] ([facility]) Immunizations Vaccine Date Status Description Data Source(s) TB Skin test is not vaccine. 06/01/2020 02:30:00 PM EDT completed [facility] ([facility]) Medications Medication Brand Name Start Date Product Form Dose Route Admi nistrative Instructions Pharmacy Instructions Status Indications Reaction Description Data Source(s) 0.12 % 11/25/2020 12:00:00 AM EDT mouthwash 473 RINSE WITH 15ML TWO TIMES A DAY FOR 30 SECONDS BY MOUTH, THEN SPIT. AVOID RINSING OR EATING FOR 30 MIN AFTER RINSE WITH 15ML TWO TIMES A DAY FOR 30 S ECONDS BY MOUTH, THEN SPIT. AVOID RINSING OR EATING FOR 30 MIN AFTER SOLD: 11/25/2020 [facility] 500 mg 11/25/2020 12:00:00 AM EDT capsule 21 TAKE ONE CAPSULE BY MOUTH EVERY 8 HOURS FOR 7 DAYS TAKE ONE CAPSULE BY MOUTH EVERY 8 HOURS FOR 7 DAYS IWONA [facility] POLYETHYLENE GLYCOL 3350 142 MG/ML Oral Solution [Miralax] M iralax 08/24/2020 12:00:00 AM EDT active M [facility] ([facility]) Bisacodyl 5 MG Delayed Release Oral Tablet [Dulcolax] Dulcol ax 08/24/2020 12:00:00 AM EDT active M [facility] ([facility]) Fluticasone Propionate Fluticasone Propionate 07/19/2020 12:00:00 AM E DT active [facility] montelukast 10 MG Oral Tablet Montelukast Sodium 06/13/2020 12:00:00 AM EDT ORAL active [facility] ([facility]) 20-12.5 mg 02/12/2020 12:00:00 AM EST tablet 30 TAKE ONE TABLET BY MOUTH DAILY TAKE ONE TABLET BY MOUTH DAILY SOLD: 02/12/2020 [facility] Insurance Providers Payer name Policy type / Coverage type Policy ID Covered constitution party ID Covered constitution party's relationship to mendoza Policy Mendoza Plan Information ACTIVE DUTY [id number] SP [id number] U [id number] Self [id number] [place]ena [id number] U [id number] Self [id number] OTHER B [id number] Self [id number] SELF PAY ONLY SP 'S ADMINISTRATION [id number] SP [id number] [employer] [place] CCN [id number] SP [id number] [facility] HUMANA [id number] SP [id number] [facility] MVH-VAPCCC [facility] [id number] SP [id number] [facility] HUMANA [id number] SP [id number] MEDICAID [id number] SP [id number] MEDICAID M [id number] S [id number] [facility] O [id number] S [id number] [employer] [place] O [id number] S [id number] N REGIONAL CLAIMS [place] -O/P [id number] 18 [id number] [facility] O [id number] S [id number] [place] [facility] [id number] 18 [id number] [facility] [place] [id number] 18 [id number] [facility] [place] [id number] 18 [id number] [facility] MEDICAID [id number] SP [id number] X Problems, Conditions, and Diagnoses Code Display Name Description Problem Type Effective Dates Data Source(s) Z1211 Encounter for screening for malignant ne oplasm of colon Encounter for screening for malignant neoplasm of colon Diagnosis 10/04/2020 08:00:0 0 AM EDT [facility] [id number] Encounter for other preprocedural examin ation Encounter for other preprocedural examination Diagnosis 09/22/2020 04:15:00 PM EDT [facility] 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 Diagnosi s 09/06/2020 02:22:00 PM EDT [facility] N469 Male infertility, unspecified Male infertility, unspec ified Diagnosis 09/06/2020 02:22:00 PM EDT [facility] N529 Male erectile dysfunction, unspecified M jj erectile dysfunction, unspecified Diagnosis 09/06/2020 02:22:00 PM EDT [facility] [id number] Essential hypertension Essential hypertension Problem 08/24/2020 12:00:00 AM EDT [facility] ([facility]) J30.1 Allergic rhinitis due to pollen Allergic rhinitis due to pollen Problem 07/19/2020 12:00:00 AM EDT [facility] ([facility] ) Note: 4+ positive reaction to ragweed po llen, weed pollen, tree mix #1 (birch, oak, maple) and tree mix #2 (karmen, cottonwood, elm, pine) on intradermal test. J30.81 Allergic rhinitis due to animals Allergic rhinit is due to animals Problem 07/19/2020 12:00:00 AM EDT [facility] ([facility] Note: 3+ positive reaction to cat dande r and dog dander on intradermal test. J30.89 Allergic rhinitis due to house dust mite Allergic rhinitis due to house dust mite Problem 07/19/2020 12:00:00 AM EDT [facility] ([facility]) Note: 4++ reaction to dust mites and tanika kroaches on intradermal test. J45.40 Uncomplicated moderate persistent asthma Uncomplicated moderate persistent asthma Problem 07/19/2020 12:00:00 AM EDT [facility] ([facility] [id number] Essential hypertension Essential hypertension Problem 07/19/2020 12:00:00 AM EDT [facility] ([facility] ) [id number] Essential hypertension Essential hypertension Problem 04/22/2020 12:00:00 AM EST [facility] ([facility] ) Surgeries/Procedures Procedure Description Date Indications Data Source(s) BRNCDILAT RSPSE SPMTRY PRE&POST-BRNCDILAT ADMN 021 12:00:00 AM EDT [facility] ([facility]) OFFICE OUTPATIENT VISIT 15 MINUTES 11/21/2020 12:00:00 AM EDT [facility] ([facility]) OFFICE OUTPATIENT VISIT 10 MINUTES 09/20/2020 12:00:00 AM EDT [facility] ([facility]) OFFICE OUTPATIENT NEW 20 MINUTES 09/06/2020 12:00:00 A M EDT [facility] ([facility]) OFFICE OUTPATIENT NEW 20 MINUTES 08/24/2020 12:00:00 A M EDT [facility] ([facility]) Echography Soft Tissue Head & Neck 08/04/2020 12:00:00 AM EDT [facility] ([facility] ) PERCUTANEOUS TESTS W/ALLERGENIC EXTRACTS 07/19/2020 12 :00:00 AM EDT [facility] ([facility]) INTRACUTANEOUS TESTS W/ALLERGENIC EXTRACTS 07/19/2020 12:00:00 AM EDT [facility] ([facility]) OFFICE OUTPATIENT NEW 30 MINUTES 07/19/2020 12:00:00 A M EDT [facility] OFFICE OUTPATIENT NEW 45 MINUTES 07/19/2020 12:00:00 A M EDT [facility] ([facility]) Results ID Date Data Source [id number] 10/07/2020 07:43:00 AM EDT [facility] Name Value Range Interpretation Code Description Data Pearl rce(s) Supporting Document(s) SARS coronavirus 2 RNA [Presence] in Res piratory specimen by NICOLAS with probe detection NEGATIVE [facility] This lab was ordered by [facility] a nd reported by [facility]. ID Date Data Source [id number] 10/04/2020 08:11:00 AM EDT [facility] NOT DETECTEDNOT DETECTED{ PROC EDURAL CONTROL VALID KIT LOT # [id number] 10/04/20.JSK. KIT EXP DATE _01/20/21 10/04/20.JSK. NORMAL RANGE IS NOT DETECTEDThe COVID-19 assay is a rapid molecular in vitro diagnostic testutilizing an isothermal nucleic acid amplification technology for thequalitative detection of nucleic acid from the SARS-CoV-2 viral RNA in directnasal or nasopharyngeal swabs. Testing should be performed within the first 7days of the onset of symptoms.NEGATIVE RESULTS SHOULD BE TREATED PRESUMPTIVE AND, IF INCONSISTENT WITHCLINICAL SIGNS AND SYMPTOMS OR NECESSARY FOR PATIENT MANAGEMENT, SHOULD BETESTED WITH DIFFERENT AUTHORIZED OR CLEARED MOLECULAR TESTS. NEGATIVE RESULTSDO NOT PRECLUDE SARS-CoV-2 INFECTION AND SHOULD NOT BE USED THE SOLE BASISFOR PATIENT MANAGEMENT DECISIONS. Name Value Range Interpretation Code Description Data Pearl rce(s) Supporting Document(s) ID Date Data Source [id number] 09/22/2020 11:36:00 AM EDT [facility] Name Value Range Interpretation Code Description Data Pearl rce(s) Supporting Document(s) SARS coronavirus 2 RNA Not Detected [facility] This lab was ordered by [facility] and reported by [facility]. ID Date Data Source [id number] 09/06/2020 08:16:00 AM EDT [facility] ([facility]) Name Value Range Interpretation Code Description Data Pearl rce(s) Supporting Document(s) Color of Urine Laboratory test result [facility] ([facility]) Appearance of Urine Laboratory test result [facility] ([facility]) Spec [place] 1.005 1.001-1.030 [facility] ([facility]) Leukocytes Laboratory test result [facility] ([facility]) pH of Urine by Test strip 6 5-9 MEDE NT ([facility]) Nitrate [Presence] in Urine Laboratory test result [facility] ([facility]) Protein [Presence] in Urine by Test strip Laboratory test result [facility] ([facility]) Ketones [Presence] in Urine by Test strip Laboratory test result [facility] ([facility]) Inhouse Glucose Laboratory test result [facility] ([facility]) Blood type and Indirect antibody screen panel - Blood Laboratory test result [facility] ([facility]) Urobilinogen Laboratory test result [facility] ([facility]) Bilirubin.total [Presence] in Urine by Test strip Laboratory test res ult [facility] ([facility]) ID Date Data Source [id number] 06/01/2020 02:45:00 PM EDT [facility] ([facility]) Name Value Range Interpretation Code Description Data Pearl rce(s) Supporting Document(s) Mumps virus IgG Ab [Presence] in Serum [facility] Immune...No MMR update needed. Rubella virus IgG Ab [Titer] in Serum Laboratory test [facility]) Immune...No MMR update needed. Measles virus Ab [Presence] in Serum 103.0 AU/mL [facility]) Immune...No MMR update needed. Procedure Social History Code Duration Value Status Description Data Source(s ) Smoking 11/21/2020 12:00:00 AM EDT Patient has never smoked co mpleted Patient has never smoked [facility] ([facility] ) Smoking 02/12/2020 12:00:00 AM EST Patient has never smoked co mpleted Patient has never smoked [facility] ([facility]) Vital Signs ID Date Data Source UNK Name Value Range Interpretation Code Description Data Source(s) Heart rate 62 /min 62 /min [facility] ([facility] Respiratory rate 18 /min 18 /min [facility] ( [facility]) Diastolic blood pressure 78 mm[Hg] 78 mm[Hg] [facility] ([facility]) Body mass index (BMI) [Ratio] 30.3 kg/m2 30.3 k g/m2 [facility] ([facility]) Body weight 202.25 [lb_av] 202.25 [lb_av] [facility] T ([facility]) Body height 68.5 [in_i] 68.5 [in_i] [facility] ([facility] 5'8.50" Systolic blood pressure 126 mm[Hg] 126 mm[Hg] [facility] Systolic blood pressure 119 mm[Hg] 119 mm[Hg] M [facility] ([facility]) Diastolic blood pressure 81 mm[Hg] 81 mm[Hg] [facility] ([facility]) Heart rate 72 /min 72 /min [facility] ([facility]) Oxygen saturation in Arterial blood by Pulse oximetry 98 % 98 % [facility] ([facility]) Body weight 192.00 [lb_av] 192.00 [lb_av] [facility] T ([facility]) Body weight 87.091 kg 87.091 kg [facility] ([facility]) Body height 71 [in_i] 71 [in_i] [facility] ([facility]) 5'11" Body mass index (BMI) [Ratio] 26.8 kg/m2 26.8 k g/m2 [facility] ([facility]) Body surface area Derived from formula 2.07 m2 2.07 m2 [facility] ([facility]) Heart rate 65 /min 65 /min [facility] ([facility]) Body temperature 98.6 [degF] 98.6 [degF] [facility] ([facility]) Oxygen saturation in Arterial blood by Pulse oximetry 100 % 100 % [facility] ([facility]) Body weight 205.00 [lb_av] 205.00 [lb_av] [facility] T ([facility]) Body weight 92.988 kg 92.988 kg [facility] ([facility]) Body height 71 [in_i] 71 [in_i] [facility] ([facility]) 5'11" Body mass index (BMI) [Ratio] 28.6 kg/m2 28.6 k g/m2 [facility] ([facility]) Body surface area Derived from formula 2.13 m2 2.13 m2 [facility] ([facility]) Respiratory rate 18 /min 18 /min [facility] ( [facility]) Body surface area Derived from formula 2.06 m2 2.06 m2 [facility] ) Body mass index (BMI) [Ratio] 29.2 kg/m2 29.2 k g/m2 [facility] ([facility]) [place] body weight 160 [lb_av] 160 [lb_av] [facility] T ([facility]) Body weight 89.813 kg 89.813 kg [facility] ([facility]) Body height 69 [in_i] 69 [in_i] [facility] ([facility]) 5'9" Body weight 198.00 [lb_av] 198.00 [lb_av] [facility] T ([facility], ) Body weight 210.50 [lb_av] 210.50 [lb_av] [facility] T ([facility]) Heart rate 64 /min 64 /min [facility] ([facility]) Respiratory rate 18 /min 18 /min [facility] ( [facility]) Systolic blood pressure 140 mm[Hg] 140 mm[Hg] M EDENT ([facility]) Diastolic blood pressure 89 mm[Hg] 89 mm[Hg] [facility] ([facility]) Body mass index (BMI) [Ratio] 31.5 kg/m2 31.5 k g/m2 [facility] ([facility]) Body height 68.5 [in_i] 68.5 [in_i] [facility] 5'8.50" Diastolic blood pressure 87 mm[Hg] 87 mm[Hg] [facility] ([facility]) Systolic blood pressure 136 mm[Hg] 136 mm[Hg] [facility] ([facility]) Heart rate 68 /min 68 /min [facility]) Oxygen saturation in Arterial blood by Pulse oximetry 100 % 100 % [facility] ([facility]) Respiratory rate 14 /min 14 /min [facility] ( [facility]) Body weight 93.895 kg 93.895 kg [facility] ([facility]) Body surface area Derived from formula 2.10 m2 2.10 m2 [facility] ([facility]) Body temperature 98.5 [degF] 98.5 [degF] [facility] ([facility]) Body height 69 [in_i] 69 [in_i] [facility] 5'9" Body weight 207.00 [lb_av] 207.00 [lb_av] [facility] T ([facility]) Body mass index (BMI) [Ratio] 30.6 kg/m2 30.6 k g/m2 [facility] ([facility]) [place] body weight 160 [lb_av] 160 [lb_av] [facility] T ([facility]) Systolic blood pressure 137 mm[Hg] 137 mm[Hg] M [facility]ENT ([facility], [facility]) Body mass index (BMI) [Ratio] 26.5 kg/m2 26.5 k g/m2 [facility] ([facility], [facility]) Diastolic blood pressure 84 mm[Hg] 84 mm[Hg] [facility] ([facility], [facility]) Oxygen saturation in Arterial blood by Pulse oximetry 98 % 98 % [facility] ([facility], [facility]) Heart rate 72 /min 72 /min [facility] ([facility], [facility]) Body temperature 97.8 [degF] 97.8 [degF] [facility] ([facility], [facility]) Body weight 190.00 [lb_av] 190.00 [lb_av] [facility] T ([facility], [facility]) Respiratory rate 14 /min 14 /min [facility] ( [facility], [facility]) Body height 71 [in_i] 71 [in_i] [facility], [facility]) 5'11" Body temperature 97.4 [degF] 97.4 [degF] [facility] ([facility]) Body height 69 [in_i] 69 [in_i] [facility], [facility] 5'9" [place] body weight 160 [lb_av] 160 [lb_av] [facility] T ([facility]) Heart rate 62 /min 62 /min [facility] ([facility], [facility]) Diastolic blood pressure 93 mm[Hg] 93 mm[Hg] [facility] ([facility], [facility]) Oxygen saturation in Arterial blood by Pulse oximetry 98 % 98 % [facility] ([facility], [facility]) Body weight 190.00 [lb_av] 190.00 [lb_av] [facility] T ([facility], [facility]) Body mass index (BMI) [Ratio] 26.5 kg/m2 26.5 k g/m2 [facility] ([facility], [facility]) Systolic blood pressure 147 mm[Hg] 147 mm[Hg] M [facility] ([facility], [facility]) Respiratory rate 12 /min 12 /min [facility] ( [facility], [facility]) Body temperature 98.0 [degF] 98.0 [degF] [facility] ([facility], [facility]) Body height 71 [in_i] 71 [in_i] [facility] ([facility], [facility]) 5'11" ID Date Data Source [id number] 10/10/2020 04:37:02 PM EDT [facility] Name Value Range Interpretation Code Description Data Source(s) WEIGHT RECORDED 195.[address] [facility] Height 71 Inches 071 Inches [facility]
[2021-01-14] MEDS ORDERED: NAPR-885 (10:10)
[2021-01-14] MEDS ORDERED: ERGO500029 (10:10)
[2021-01-14] MEDS ORDERED: ZONI50CA11 (10:10)
[2021-01-14 10:28] LABS: BASO % 0.5 % (0.0-1.0); EOS # 0.2 10^3/uL (0.0-0.5); EOS % 4.1 % (0.0-3.0); HEMATOCRIT 43.6 % (42.0-52.0); HEMOGLOBIN 14.6 g/dl (13.5-17.5); LYMPH # 1.1 10^3/uL (1.5-5.0); LYMPH % 27.4 % (24.0-44.0); MEAN CORPUSCULAR HEMOGLOBIN 26.7 pg (27.0-33.0); MEAN CORPUSCULAR HGB CONC 33.5 g/dl (32.0-36.5); MEAN CORPUSCULAR VOLUME 79.7 fl (80.0-96.0); MONO # 0.3 10^3/uL (0.0-0.8); MONO % 8.2 % (2.0-8.0); NEUTROPHILS # 2.3 10^3/uL (1.5-8.5); NEUTROPHILS % 59.5 % (36.0-66.0); PLATELET COUNT, AUTOMATED 174 10^3/uL (150-450); RED BLOOD COUNT 5.47 10^6/uL (4.30-6.10); WHITE BLOOD COUNT 3.9 10^3/uL (4.0-10.0)
--- NOTE | 2021-01-14 11:00 | REP ---
INDICATION: CHEST PAIN COMPARISON: 10/07/2020 TECHNIQUE: Portable AP view of the chest FINDINGS: The mediastinum and cardiac silhouette are stable and within normal limits for portable technique. The lung simmons are clear without acute consolidation, effusion, or pneumothorax. Skeletal structures are intact. IMPRESSION: No acute cardiopulmonary process appreciated. <Electronically signed by Doug Paniagua > 01/14/21 [id number]
[2021-01-14 11:04] LABS: ALBUMIN 4.1 GM/DL (3.2-5.2); ALT/SGPT 41 U/L (12-78); BILIRUBIN,DIRECT < 0.1 MG/DL (0.0-0.2); BILIRUBIN,TOTAL 0.3 MG/DL (0.2-1.0); BLOOD UREA NITROGEN 11 MG/DL (7-18); CALCIUM LEVEL 9.3 MG/DL (8.5-10.1); CARBON DIOXIDE LEVEL 29 MEQ/L (21-32); CHLORIDE LEVEL 103 MEQ/L (98-107); CREATININE FOR GFR 1.16 MG/DL (0.70-1.30); GLOMERULAR FILTRATION RATE > 60.0 (>56); GLUCOSE, FASTING 103 MG/DL (70-100); LIPASE 261 U/L (73-393); NT-PRO BNP 13 PG/ML (<125); POTASSIUM SERUM 3.6 MEQ/L (3.5-5.1); SODIUM LEVEL 139 MEQ/L (136-145); THYROID STIMULATING HORMONE 0.966 uIU/ML (0.358-3.740); TOTAL PROTEIN 7.7 GM/DL (6.4-8.2)
--- OUTSIDE RECORDS SUMMARY | 2021-01-14 11:12 | CCD ---
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 Phone Leandro MCRAE Unavailable Unavailable [...] Unavailable Cheney, Lakshmi Isi PA Unavailable Unavailable Ridgway, Arnold MD Unavailable Unavailable Ridgway, Arnold MD Unavailable Unavailable Ridgway, Arnold MD Unavailable Unavailable Ridgway, Arnold MD Unavailable Unavailable Ridgway, Arnold MD Unavailable Unavailable Ridgway, Arnold MD Unavailable Unavailable Ridgway, Arnold MD Unavailable Unavailable Ridgway, Arnold MD Unavailable Unavailable Ridgway, Arnold MD Unavailable Unavailable Ridgway, Arnold MD Unavailable Unavailable Ridgway, Arnold MD Unavailable Unavailable Ridgway, Arnold MD Unavailable Unavailable Ridgway, Arnold MD Unavailable Unavailable Ridgway, Arnold MD Unavailable Unavailable Ridgway, Arnold MD Unavailable Unavailable Ridgway, Arnold MD Unavailable Unavailable Ridgway, Arnold MD Unavailable Unavailable Ridgway, Arnold MD Unavailable Unavailable Ridgway, Arnold MD Unavailable Unavailable Ridgway, Arnold MD Unavailable Unavailable Ridgway, Arnold MD Unavailable Unavailable Ridgway, Arnold MD Unavailable Unavailable Ridgway, Arnold MD Unavailable Unavailable Ridgway, Arnold MD Unavailable Unavailable Ridgway, Arnold MD Unavailable Unavailable Ridgway, Arnold MD Unavailable Unavailable Ridgway, Arnold MD Unavailable Unavailable Ridgway, Arnold MD Unavailable Unavailable Ridgway, Arnold MD Unavailable Unavailable Ridgway, Arnold MD Unavailable Unavailable Ridgway, Arnold MD Unavailable Unavailable OBEN, T MARJAN [...] is protected by Article 27-F of the [facility] Public Health law. If you continue you may have access to information: Regarding HIV / AIDS; Provided by facilities licensed or operated by the [facility] Office of Mental Health; or Provided by the [facility] Office for People With Developmental Disabilities. If such information is present, then the following [facility] mandated warning applies: This information has [...] law may result in a fine or chcf sentence or both. A general authorization for the release of medical or other information is NOT sufficient authorization for further disc losure. Allergies and Adverse Reactions Type Description Substance Reaction Status Data Source(s ) No Known Drug Allergies No Known Drug Allergies [facility] Propensity to adverse reactions NO KNOWN ALLERGIES NO KNOWN ALLERGIES [facility] Encounters Encounter Providers Location Date Indications Data Source(s ) Outpatient Attender: MANDO BERNARD MD Main Office 11/21/2020 10:00:00 AM EDT [facility] ([facility] Outpatient Attender: JUAN SURESH MDConsultant: BEE EMERY 10/04/2020 08:00:00 AM EDT - 10/04/2020 10:38:00 AM EDT [facility] Patient discharged. Outpatient Attender: JUAN SURESH MDConsultant: BEE OR TIZ 09/21/2020 06:51:25 AM EDT - 09/22/2020 05:08:00 PM EDT [facility] Patient discharged. Outpatient Attender: MARJAN SINGLETON MDConsultant: BEE Resendiz 09/20/2020 04:16:00 PM EDT - 09/20/2020 04:16:00 PM EDT [facility] Outpatient Attender: MARJAN SINGLETON MD Family Practice 09/20/2020 03:45:0 0 PM EDT MED[facility] ([facility]) Outpatient Attender: MARJAN SINGLETON MDConsultant: BEE GAMINOTI Martín 09/06/2020 02:22:00 PM EDT - 09/06/2020 02:22:00 PM EDT [facility] Outpatient Attender: JUAN SURESH MD [facility] 08/24/2020 1 1:00:00 AM EDT MED[facility] ([facility]) Outpatient Attender: JUAN SURESH MDConsultant: BEE OR TIMartín 08/24/2020 10:58:00 AM EDT - 08/24/2020 10:58:00 AM EDT [facility] Outpatient Attender: Arnold Young/Linda/Rodrigo/Cammied l 08/04/2020 08:00:00 AM EDT [facility] ([facility] Outpatient Attender: MANDO BERNARD MD Main Office 07/19/2020 08:30:00 AM EDT [facility] Out[facility] Attender: Derian Young/Linda/Rodrigo/Re indl 06/13/2020 01:00:00 PM EDT [facility] ([facility]) Outpatient Attender: LEXY Mota norma 06/01/2020 02:40:00 PM EDT [facility] ([facility] Outpatient Attender: Derian Young/Linda/Rodrigo/Nyasia indl 04/22/2020 08:00:00 AM EST [facility] ([facility] Outpatient Attender: Isi green 02/12/2020 05:05:00 PM EST [facility] ([facility]) Immunizations Vaccine Date Status Description Data Source(s) TB Skin test is not vaccine. 06/01/2020 02:30:00 PM EDT completed MEDENT ([facility]) Medications Medication Brand Name Start Date Product [...] 08/24/2020 12:00:00 AM EDT active M EDENT ([facility]) Bisacodyl 5 MG Delayed Release Oral Tablet [Dulcolax] Dulcol ax 08/24/2020 12:00:00 AM EDT active M EDENT ([facility]) Fluticasone Propionate Fluticasone Propionate 07/19/2020 12:00:00 AM E DT active [facility] ([facility] montelukast 10 MG Oral Tablet Montelukast Sodium 06/13/2020 12:00:00 AM EDT ORAL active [facility] ([facility]) 20-12.5 mg 02/12/2020 12:00:00 AM EST tablet 30 TAKE ONE TABLET BY MOUTH DAILY TAKE ONE TABLET BY MOUTH DAILY SOLD: 02/12/2020 [facility] Insurance Providers Payer name Policy type / Coverage type Policy ID Covered alliance party ID Covered alliance party's relationship to mendoza Policy Mendoza Plan Information ACTIVE DUTY [id number] SP [id number] U [id number] Self [id number] [place] [id number] U [id number] Self [id number] OTHER B [id number] Self [id number] SELF PAY ONLY SP 'S ADMINISTRATION [id number] SP [id number] OPTUM [place] CCN [id number] SP [id number] [facility] HUMANA [id number] SP [id number] [facility] MVH-VAPCCC [facility]ST [id number] SP [id number] [facility] HUMANA [id number] SP [id number] MEDICAID [id number] SP [id number] MEDICAID M [id number] S [id number] [facility] O [id number] S [id number] [facility] [place] O [id number] S [id number] N REGIONAL CLAIMS [place]INA -O/P [id number] 18 [id number] HUMANA [place] REG O [id number] S [id number] [place]MA[place] - O/P [place] [id number] 18 [id number] [facility] [place] [id number] 18 [id number] [facility] [place] [id number] 18 [id number] [facility] MEDICAID [id number] SP [id number] X Problems, Conditions, and Diagnoses Code Display Name Description Problem Type Effective Dates Data Source(s) Z1211 Encounter for screening for malignant ne oplasm of colon Encounter for screening for malignant neoplasm of colon Diagnosis 10/04/2020 08:00:0 0 AM EDT 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 N469 Male infertility, unspecified Male infertility, unspec ified Diagnosis 09/06/2020 02:22:00 PM EDT [facility] N529 Male erectile dysfunction, unspecified M jj erectile dysfunction, unspecified Diagnosis 09/06/2020 02:22:00 PM EDT [facility] [id number] Essential hypertension Essential hypertension Problem 08/24/2020 12:00:00 AM EDT [facility] ([facility]) J30.1 Allergic rhinitis due to pollen [...] [facility] ([facility]) Note: 3+ positive reaction to cat dande r and dog dander on intradermal test. J30.89 Allergic rhinitis due to house dust mite Allergic rhinitis due to house dust mite Problem 07/19/2020 12:00:00 AM EDT [facility] ([facility]) Note: 4++ reaction to dust mites and tanika kroaches on intradermal test. J45.40 Uncomplicated moderate persistent asthma Uncomplicated moderate persistent asthma Problem 07/19/2020 12:00:00 AM EDT [facility] ([facility]) [id number] Essential hypertension Essential hypertension Problem 07/19/2020 12:00:00 AM EDT [facility] ([facility] ) [id number] Essential hypertension Essential hypertension Problem 04/22/2020 12:00:00 AM EST [facility] ([facility], ) Surgeries/Procedures Procedure Description Date Indications Data Source(s) BRNCDILAT RSPSE SPMTRY PRE&POST-BRNCDILAT ADMN 021 12:00:00 AM EDT [facility] ([facility]) OFFICE OUTPATIENT VISIT 15 MINUTES 11/21/2020 12:00:00 AM EDT [facility] ([facility]) OFFICE OUTPATIENT VISIT 10 MINUTES 09/20/2020 12:00:00 AM EDT [facility] ([facility]) OFFICE OUTPATIENT NEW 20 MINUTES 09/06/2020 12:00:00 A M EDT [facility] ([facility]) OFFICE OUTPATIENT NEW 20 MINUTES 08/24/2020 12:00:00 A M EDT [facility] ([facility]) Echography Soft Tissue Head & Neck 08/04/2020 12:00:00 AM EDT [facility] ([facility], ) PERCUTANEOUS TESTS W/ALLERGENIC EXTRACTS 07/19/2020 12 :00:00 AM EDT [facility] ([facility]) INTRACUTANEOUS TESTS W/ALLERGENIC EXTRACTS 07/19/2020 12:00:00 AM EDT [facility] ([facility]) OFFICE OUTPATIENT NEW 30 MINUTES 07/19/2020 12:00:00 A M EDT [facility] OFFICE OUTPATIENT NEW 45 MINUTES 07/19/2020 12:00:00 A M EDT [facility] ([facility]) Results ID Date Data Source [id number] 10/07/2020 07:43:00 AM EDT [facility] Name Value Range Interpretation Code Description Data Pearl rce(s) Supporting Document(s) SARS coronavirus 2 RNA [Presence] in Res piratory specimen by NICOLAS with probe detection NEGATIVE [facility] This lab was ordered by [facility] a nd reported by [facility]. ID Date Data Source [id number] 10/04/2020 08:11:00 AM EDT [facility] NOT DETECTEDNOT DETECTED{ PROC EDURAL CONTROL VALID [...] rce(s) Supporting Document(s) ID Date Data Source [id number] 09/22/2020 11:36:00 AM EDT [facility] Name Value Range Interpretation Code Description Data Pearl rce(s) Supporting Document(s) SARS coronavirus 2 RNA Not Detected [facility] This lab was ordered by [facility] and reported by [facility]. ID Date Data Source [id number] 09/06/2020 08:16:00 AM EDT [facility] ([facility]) Name Value Range Interpretation Code Description Data Pearl rce(s) Supporting Document(s) Color of Urine Laboratory test result [facility] ([facility]) Appearance of Urine Laboratory test result [facility] ([facility]) Spec [place] 1.005 1.001-1.030 [facility] ([facility]) Leukocytes Laboratory test result [facility] ([facility]) pH of Urine by Test strip 6 5-9 MEDE NT ([facility]) Nitrate [Presence] in Urine Laboratory test result [facility] ([facility]) Protein [Presence] in Urine by Test strip Laboratory test result [facility] ([facility]) Ketones [Presence] in Urine by Test strip Laboratory test result [facility] ([facility]) Inhouse Glucose Laboratory test result [facility] ([facility]) Blood type and Indirect antibody screen panel - Blood Laboratory test result [facility] ([facility]) Urobilinogen Laboratory test result [facility] ([facility]) Bilirubin.total [Presence] in Urine by Test strip Laboratory test res ult [facility] ([facility]) ID Date Data Source [id number] 06/01/2020 02:45:00 PM EDT [facility] ([facility]) Name Value Range Interpretation Code Description Data Pearl rce(s) Supporting Document(s) Mumps virus IgG Ab [Presence] in Serum Laboratory test result [facility] Immune...No MMR update needed. Rubella virus IgG Ab [Titer] in Serum [facility]) Immune...No MMR update needed. Measles virus Ab [Presence] in Serum 103.0 AU/mL [facility] ([facility]) Immune...No MMR update needed. Procedure Social History Code Duration Value Status Description Data Source(s ) Smoking 11/21/2020 12:00:00 AM EDT Patient has never smoked co mpleted Patient has never smoked [facility] ([facility] ) Smoking 02/12/2020 12:00:00 AM EST Patient has never smoked co mpleted Patient has never smoked [facility] ([facility]) Vital Signs ID Date Data Source UNK Name Value Range Interpretation Code Description Data Source(s) Body mass index (BMI) [Ratio] 30.3 kg/m2 30.3 k g/m2 [facility] ([facility]) Heart rate 62 /min 62 /min MED[facility] [...] [facility] 5'8.50" Systolic blood pressure 126 mm[Hg] 126 mm[Hg] M EDENT ([facility]) Systolic blood pressure 119 mm[Hg] 119 mm[Hg] M EDENT ([facility]) Diastolic blood pressure 81 mm[Hg] 81 mm[Hg] [facility] ([facility]) Heart rate 72 /min 72 /min [facility] ([facility]) Oxygen saturation in Arterial blood by Pulse oximetry 98 % 98 % [facility] ([facility]) Body weight 192.00 [lb_av] 192.00 [lb_av] MEDEN T ([facility]) Body weight 87.091 kg 87.091 kg MED[facility] ([facility]) Body height 71 [in_i] 71 [in_i] [facility] ([facility]) 5'11" Body mass index (BMI) [Ratio] 26.8 kg/m2 26.8 k g/m2 [facility] ([facility]) Body surface area Derived from formula 2.[address] [facility] ([facility]) Oxygen saturation in Arterial blood by Pulse oximetry 100 % 100 % [facility] ([facility]) Body weight 205.00 [lb_av] 205.00 [lb_av] MEDEN T ([facility]) Body weight 92.988 kg 92.988 kg [facility] ([facility]) Body height 71 [in_i] 71 [in_i] MED[facility] ([facility]) 5'11" Body mass index (BMI) [Ratio] 28.6 kg/m2 28.6 k g/m2 MED[facility] ([facility]) Body surface area Derived from formula 2.13 m2 2.13 m2 [facility] ([facility]) Heart rate 65 /min 65 /min [facility] ([facility]) Body temperature 98.6 [degF] 98.6 [degF] [facility] ([facility]) Respiratory rate 18 /min 18 /min MED[facility] ( [facility]) Body mass index (BMI) [Ratio] 29.2 kg/m2 29.2 k g/m2 [facility] ([facility], ) [place] body weight 160 [lb_av] 160 [lb_av] MEDEN T ([facility]) Body surface area Derived from formula 2.06 m2 2.06 m2 MED[facility] ([facility], ) Body weight 89.813 kg 89.813 kg MED[facility] ([facility], ) Body height 69 [in_i] 69 [in_i] [facility] ([facility]) 5'9" Body weight 198.00 [lb_av] 198.00 [lb_av] MEDEN T ([facility], ) Body height 68.5 [in_i] 68.5 [in_i] [facility] 5'8.50" Body weight 210.50 [lb_av] 210.50 [lb_av] MEDEN [...] [facility] ([facility]) Diastolic blood pressure 87 mm[Hg] 87 mm[Hg] [facility] ([facility]) Systolic blood pressure 136 mm[Hg] 136 mm[Hg] M EDENT ([facility]) Heart rate 68 /min 68 /min [facility] ([facility]) Oxygen saturation in Arterial blood by Pulse oximetry 100 % 100 % [facility] ([facility]) Respiratory rate 14 /min 14 /min [facility] ( [facility]) Body temperature 98.5 [degF] 98.5 [degF] [facility] ([facility]) Body weight 93.895 kg 93.895 kg [facility]) Body surface area Derived from formula 2.[address] [facility] ([facility]) Body height 69 [in_i] 69 [in_i] [facility] ([facility]) 5'9" Body weight 207.00 [lb_av] 207.00 [lb_av] MEDEN T ([facility]) Body mass index (BMI) [Ratio] 30.6 kg/m2 30.6 k g/m2 [facility] ([facility]) [facility] body weight 160 [lb_av] 160 [lb_av] MEDEN T ([facility]) Body mass index (BMI) [Ratio] 26.5 kg/m2 26.5 k g/m2 [facility] ([facility]) Systolic blood pressure 137 mm[Hg] 137 mm[Hg] M EDENT ([facility], [facility]) Diastolic blood pressure 84 mm[Hg] 84 mm[Hg] [facility] ([facility]) Heart rate 72 /min 72 /min [facility] ([facility]) Oxygen saturation in Arterial blood by Pulse oximetry 98 % 98 % [facility] ([facility], [facility]) Body temperature 97.8 [degF] 97.8 [degF] [facility] ([facility]) Body weight 190.00 [lb_av] 190.00 [lb_av] MEDEN T ([facility], [facility]) Body height 71 [in_i] 71 [in_i] [facility] ([facility], [facility]) 5'11" Respiratory rate 14 /min 14 /min MED[facility] ( [facility]) Body temperature 97.4 [degF] 97.4 [degF] [facility] ([facility], ) Body height 69 [in_i] 69 [in_i] [facility] ([facility], ) 5'9" [place] body weight 160 [lb_av] 160 [lb_av] MEDEN T ([facility], ) Systolic blood pressure 147 mm[Hg] 147 mm[Hg] M EDENT ([facility], [facility]) Diastolic blood pressure 93 mm[Hg] 93 mm[Hg] [facility] ([facility], [facility]) Heart rate 62 /min 62 /min [facility] ([facility]) Respiratory rate 12 /min 12 /min [facility] ( [facility]) Oxygen saturation in Arterial blood by Pulse oximetry 98 % 98 % [facility] ([facility]) Body temperature 98.0 [degF] 98.0 [degF] [facility] ([facility]) Body weight 190.00 [lb_av] 190.00 [lb_av] MEDEN T ([facility], [facility]) Body height 71 [in_i] 71 [in_i] [facility] ([facility]) 5'11" Body mass index (BMI) [Ratio] 26.5 kg/m2 26.5 k g/m2 [facility] ([facility]) ID Date Data Source [id number] 10/10/2020 04:37:02 PM EDT [facility] Name Value Range Interpretation Code Description Data Source(s) WEIGHT RECORDED 195.00 pounds 195.00 pounds Car [facility] Height 71 Inches 071 Inches [facility]
[2021-01-14] MEDS ORDERED: ISOVUE-370 76% 100ML VIAL As Ordered ONE (11:15)
--- NOTE | 2021-01-14 11:49 | REP ---
INDICATION: Chest pain COMPARISON: 05/29/2019 TECHNIQUE: Axial contrast enhanced images from the thoracic inlet to the upper abdomen using pulmonary embolus technique with multiplanar re-formations. 75 ml Isovue 370 intravenous contrast material administered without complication. This CT examination was performed using the following dose reduction techniques: Automated exposure control, adjustment of mA and/or kv according to the patient's size, and use of iterative reconstruction technique. FINDINGS: Satisfactory enhancement of the pulmonary vasculature is achieved and no filling defects are identified to suggest pulmonary embolus. Further evaluation of the mediastinum demonstrates normal thoracic aorta, heart and pericardium. The bilateral lung simmons are well aerated and clear without consolidation pleural effusion or pneumothorax. Tracheobronchial tree is patent. No nodule or mass lesion is identified. No adenopathy noted. Surrounding musculoskeletal structures intact IMPRESSION: No evidence for pulmonary embolus. No acute mediastinal or pleural parenchymal process. <Electronically signed by Doug Paniagua > 01/14/21 [id number]
[2021-01-14 16:15] VITALS: BP 129/78
--- NOTE | 2021-01-14 20:36 | ECGEPIP ---
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
== END 2021-01-14 16:21 | disposition home or self-care (01) ==
LOC: M ED 09:59
DX: R06.00 Dyspnea, unspecified (principal); I10 Essential (primary) hypertension; J45.909 Unspecified asthma, uncomplicated; Z79.899 Other long term (current) drug therapy
CPT/HCPCS: 36415; 71045; 71275; 80048; 80076; 83690; 83880; 84443; 84484; 85025; 93005; 93041; 94760; 99285; Q9967

== ENCOUNTER 2021-02-16 23:30 | Emergency (ER) | payer OTHER ==
[~2021-02-16] VITALS: Ht 175.3 cm; Wt 93.2 kg
[~2021-02-16 23:30] MED LIST changes: +ERGO500029; +NAPR-885; +ZONI50CA11
[2021-02-17 03:24] VITALS: BP 117/69
== END 2021-02-17 05:55 | disposition left against medical advice (07) ==
LOC: M ED 23:30
DX: Z53.29 Procedure and treatment not carried out because of patient's decision for other reasons (principal)

== ENCOUNTER 2021-02-21 01:05 | Emergency (ER) | payer OTHER ==
[~2021-02-21] VITALS: Ht 175.3 cm; Wt 86.4 kg
[2021-02-21] MEDS ORDERED: ASPIRIN 81 MG CHEW TABLET PO ONE (03:20)
[2021-02-21] MEDS ORDERED: methylPREDNISolone 125MG 2ML VIAL IV ONE (03:20)
[2021-02-21 03:41] LABS: BASO % 0.5 % (0.0-1.0); EOS # 0.1 10^3/uL (0.0-0.5); EOS % 1.7 % (0.0-3.0); HEMATOCRIT 40.9 % (42.0-52.0); LYMPH % 24.9 % (24.0-44.0); MEAN CORPUSCULAR HEMOGLOBIN 27.4 pg (27.0-33.0); MEAN CORPUSCULAR HGB CONC 34.2 g/dl (32.0-36.5); MONO # 0.3 10^3/uL (0.0-0.8); MONO % 7.7 % (2.0-8.0); NEUTROPHILS # 2.6 10^3/uL (1.5-8.5); PLATELET COUNT, AUTOMATED 155 10^3/uL (150-450); RED BLOOD COUNT 5.11 10^6/uL (4.30-6.10)
[2021-02-21 04:09] LABS: CK-MB VALUE MASS 1.2 NG/ML (<3.6); MB/CK RELATIVE INDEX 0.68 (< OR =4)
[2021-02-21 04:20] LABS: RSV AMPLIFICATION NEGATIVE (NEGATIVE)
--- NOTE | 2021-02-21 04:25 | REPVR ---
PROCEDURE INFORMATION: Exam: XR Chest Exam date and time: 02/21/21 (3:24am) Age: 51 years old Clinical indication: Chest pain TECHNIQUE: Imaging protocol: Portable CXR Views: 1 view COMPARISON: Portable CXR of 01/14/21 FINDINGS: Lungs: Unremarkable. No consolidation. Pleural spaces: Unremarkable. No pleural effusions. No pneumothorax. Heart/Mediastinum: Unremarkable. No cardiomegaly. Bones/joints: Unremarkable. IMPRESSION: No acute findings. Lung simmons remain clear. Electronically signed by: Louise Koch On 02/21/2021 04:25:05 AM
[2021-02-21 05:10] LABS: BLOOD UREA NITROGEN 11 MG/DL (7-18); CALCIUM LEVEL 8.5 MG/DL (8.5-10.1); CARBON DIOXIDE LEVEL 28 MEQ/L (21-32); CHLORIDE LEVEL 109 MEQ/L (98-107); CREATININE FOR GFR 1.17 MG/DL (0.70-1.30); GLOMERULAR FILTRATION RATE > 60.0 (>56); GLUCOSE, FASTING 102 MG/DL (70-100); POTASSIUM SERUM 4.1 MEQ/L (3.5-5.1); SODIUM LEVEL 142 MEQ/L (136-145)
[2021-02-21] MEDS ORDERED: SYMB16INH (06:18)
[2021-02-21] MEDS ORDERED: PRED20TA PO (06:22)
[2021-02-21 06:45] VITALS: BP 127/79
--- NOTE | 2021-02-21 09:59 | ECGEPIP ---
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
== END 2021-02-21 06:49 | disposition home or self-care (01) ==
LOC: M ED 01:05
DX: J45.901 Unspecified asthma with (acute) exacerbation (principal); I10 Essential (primary) hypertension; Z79.899 Other long term (current) drug therapy
CPT/HCPCS: 71045; 80048; 82550; 82553; 84484; 85025; 87631; 93005; 93041; 94760; 96374; 99285; J2930

== ENCOUNTER → 2021-02-28 | Outpatient (REF) ==
[~2021-02-28] MED LIST changes: +PRED20TA PO; +SYMB16INH
--- NOTE | 2021-02-28 20:52 | REP ---
INDICATION: SOB COMPARISON: 01/14/2021 TECHNIQUE: PA and lateral. FINDINGS: The mediastinum and cardiac silhouette are normal. The lung simmons are clear and without acute consolidation, effusion, or pneumothorax. The skeletal structures are intact and normal. IMPRESSION: No acute cardiopulmonary process. <Electronically signed by Doug Paniagua > 02/28/21 [id number]
== END ==
LOC: M PLAIMG 15:14
PROVIDERS: ATTEND Internal Medicine
DX: R06.02 Shortness of breath (principal)

== ENCOUNTER 2021-03-14 02:03 | Emergency (ER) | payer OTHER ==
[~2021-03-14] VITALS: Ht 175.3 cm; Wt 90.0 kg
[2021-03-14 02:04] VITALS: BP 132/82
== END 2021-03-14 06:00 | disposition left against medical advice (07) ==
LOC: M ED 02:03
DX: Z53.29 Procedure and treatment not carried out because of patient's decision for other reasons (principal)

== ENCOUNTER 2021-05-11 10:03 | Emergency (ER) | payer OTHER ==
[~2021-05-11] VITALS: Ht 177.8 cm; Wt 90.2 kg
[2021-05-11] MEDS ORDERED: CHLO125TA (10:27)
[2021-05-11 14:09] LABS: BASO % 0.4 % (0.0-1.0); EOS # 0.1 10^3/uL (0.0-0.5); EOS % 1.7 % (0.0-3.0); HEMATOCRIT 42.8 % (42.0-52.0); LYMPH # 1.2 10^3/uL (1.5-5.0); LYMPH % 22.1 % (24.0-44.0); MEAN CORPUSCULAR HEMOGLOBIN 26.6 pg (27.0-33.0); MEAN CORPUSCULAR HGB CONC 32.7 g/dl (32.0-36.5); MEAN CORPUSCULAR VOLUME 81.2 fl (80.0-96.0); MONO # 0.4 10^3/uL (0.0-0.8); MONO % 6.7 % (2.0-8.0); NEUTROPHILS # 3.7 10^3/uL (1.5-8.5); NEUTROPHILS % 68.9 % (36.0-66.0); PLATELET COUNT, AUTOMATED 158 10^3/uL (150-450); RED BLOOD COUNT 5.27 10^6/uL (4.30-6.10); WHITE BLOOD COUNT 5.4 10^3/uL (4.0-10.0)
[2021-05-11] MEDS ORDERED: COMBIVENT RESPIMAT 100-20MCG INHALER 4GM INH ONE (14:35)
[2021-05-11 14:36] LABS: BLOOD UREA NITROGEN 14 MG/DL (7-18); CALCIUM LEVEL 9.8 MG/DL (8.5-10.1); CARBON DIOXIDE LEVEL 33 MEQ/L (21-32); CHLORIDE LEVEL 108 MEQ/L (98-107); CREATININE FOR GFR 1.05 MG/DL (0.70-1.30); GLOMERULAR FILTRATION RATE > 60.0 (>56); GLUCOSE, FASTING 90 MG/DL (70-100); NT-PRO BNP 8 PG/ML (<125); POTASSIUM SERUM 3.9 MEQ/L (3.5-5.1); SODIUM LEVEL 141 MEQ/L (136-145)
[2021-05-11 14:43] LABS: MB/CK RELATIVE INDEX 0.5 (< OR =4)
[2021-05-11] MEDS ORDERED: dexameTHASONE 20MG/5ML VIAL (J1100 PER 1MG) IV ONE (15:30)
[2021-05-11 15:41] VITALS: BP 140/89
[2021-05-11 16:35] LABS: RSV AMPLIFICATION NEGATIVE (NEGATIVE)
== END 2021-05-11 15:44 | disposition home or self-care (01) ==
LOC: M ED 10:03
DX: J45.909 Unspecified asthma, uncomplicated (principal); I10 Essential (primary) hypertension; Z79.899 Other long term (current) drug therapy
CPT/HCPCS: 36415; 71045; 80048; 82550; 82553; 83880; 84484; 85025; 85379; 87631; 93005; 94640; 96374; 99284; J1100

== ENCOUNTER → 2021-06-15 | Outpatient (CLI) | payer OTHER ==
[~2021-06-15] MED LIST changes: +CHLO125TA
== END ==
LOC: M RAD 10:33
PROVIDERS: ATTEND Emergency Medicine
DX: R53.1 Weakness (principal)

== ENCOUNTER 2021-06-25 11:02 | Emergency (ER) | payer OTHER ==
[~2021-06-25] VITALS: Ht 177.8 cm; Wt 90.2 kg
[2021-06-25] MEDS ORDERED: ASPIRIN 81 MG CHEW TABLET PO ONE (11:35)
[2021-06-25] MEDS ORDERED: GI COCKTAIL 50ML BTL(HYOSCYAMINE/MAALOX/LIDOCAINE VISCOUS)(1:3:1) PO ONE (11:35)
[2021-06-25 11:49] LABS: BASO % 0.8 % (0.0-1.0); EOS # 0.1 10^3/uL (0.0-0.5); EOS % 1.6 % (0.0-3.0); HEMATOCRIT 40.3 % (42.0-52.0); HEMOGLOBIN 13.5 g/dl (13.5-17.5); LYMPH # 1.2 10^3/uL (1.5-5.0); LYMPH % 33.2 % (24.0-44.0); MEAN CORPUSCULAR HEMOGLOBIN 27.2 pg (27.0-33.0); MEAN CORPUSCULAR HGB CONC 33.5 g/dl (32.0-36.5); MEAN CORPUSCULAR VOLUME 81.1 fl (80.0-96.0); MONO # 0.4 10^3/uL (0.0-0.8); MONO % 10.4 % (2.0-8.0); NEUTROPHILS % 53.7 % (36.0-66.0); PLATELET COUNT, AUTOMATED 167 10^3/uL (150-450); RED BLOOD COUNT 4.97 10^6/uL (4.30-6.10); WHITE BLOOD COUNT 3.7 10^3/uL (4.0-10.0)
[2021-06-25 12:11] LABS: CK-MB VALUE MASS 2.1 NG/ML (<3.6); MB/CK RELATIVE INDEX 0.77 (< OR =4)
[2021-06-25 12:23] LABS: ALBUMIN 3.7 GM/DL (3.2-5.2); ALT/SGPT 48 U/L (12-78); BILIRUBIN,DIRECT 0.1 MG/DL (0.0-0.2); BILIRUBIN,TOTAL 0.3 MG/DL (0.2-1.0); BLOOD UREA NITROGEN 11 MG/DL (7-18); CALCIUM LEVEL 9.5 MG/DL (8.5-10.1); CARBON DIOXIDE LEVEL 26 MEQ/L (21-32); CHLORIDE LEVEL 109 MEQ/L (98-107); CREATININE FOR GFR 0.98 MG/DL (0.70-1.30); GLOMERULAR FILTRATION RATE > 60.0 (>56); GLUCOSE, FASTING 108 MG/DL (70-100); LIPASE 3280 U/L (73-393); NT-PRO BNP 12 PG/ML (<125); SODIUM LEVEL 142 MEQ/L (136-145)
[2021-06-25] MEDS ORDERED: ONDANSETRON 4MG/2ML VIAL IV ONE (12:50)
[2021-06-25] MEDS ORDERED: MORPHINE 2 MG/ML 1ML VIAL IV PRN (12:50)
[2021-06-25] MEDS ORDERED: ISOVUE-370 76% 100ML VIAL As Ordered ONE (12:56)
[2021-06-25 13:01] LABS: MB/CK RELATIVE INDEX 0.84 (< OR =4)
[2021-06-25] MEDS ORDERED: HYDR-4571 PO (14:10)
[2021-06-25 14:15] VITALS: BP 139/80
== END 2021-06-25 14:34 | disposition home or self-care (01) ==
LOC: M ED 11:02
DX: K85.90 Acute pancreatitis without necrosis or infection, unspecified (principal); I10 Essential (primary) hypertension; J45.909 Unspecified asthma, uncomplicated; G43.909 Migraine, unspecified, not intractable, without status migrainosus; Z79.899 Other long term (current) drug therapy
CPT/HCPCS: 71045; 74177; 80048; 80076; 82550; 82553; 83690; 83880; 84484; 85025; 85379; 93005; 93041; 94760; 96374; 96375; 99285; J2270; J2405; Q9967

== ENCOUNTER 2021-07-14 11:53 | Emergency (ER) | payer OTHER ==
[~2021-07-14] VITALS: Ht 177.8 cm; Wt 87.3 kg
[~2021-07-14 11:53] MED LIST changes: +EXCETAB32 PO; -EXCETAB33 PO; +HYDR-4571 PO
[2021-07-14] MEDS ORDERED: GI COCKTAIL 50ML BTL(HYOSCYAMINE/MAALOX/LIDOCAINE VISCOUS)(1:3:1) PO ONE (14:40)
[2021-07-14] MEDS ORDERED: OMEP10CASR PO (14:48)
[2021-07-14 15:07] VITALS: BP 128/80
== END 2021-07-14 15:13 | disposition home or self-care (01) ==
LOC: M ED 11:53
DX: K21.9 Gastro-esophageal reflux disease without esophagitis (principal); Z86.69 Personal history of other diseases of the nervous system and sense organs; I10 Essential (primary) hypertension; J45.909 Unspecified asthma, uncomplicated; Z79.899 Other long term (current) drug therapy

== ENCOUNTER 2021-07-25 11:05 | Observation (INO) | payer OTHER ==
[~2021-07-25] VITALS: Ht 177.8 cm; Wt 88.3 kg
[~2021-07-25 11:05] MED LIST changes: -CHLO125TA; +CHLO125TA PO; -ERGO500029; +ERGO500029 PO; +OMEP10CASR PO; -SYMB16INH; +SYMB16INH INH; -ZONI50CA11; +ZONI50CA11 PO
[2021-07-25] MEDS ORDERED: ISOVUE-370 76% 100ML VIAL As Ordered ONE (11:39)
[2021-07-25 11:46] LABS: BASO % 0.5 % (0.0-1.0); EOS # 0.1 10^3/uL (0.0-0.5); EOS % 2.8 % (0.0-3.0); HEMATOCRIT 41.9 % (42.0-52.0); HEMOGLOBIN 14.1 g/dl (13.5-17.5); LYMPH # 1.1 10^3/uL (1.5-5.0); LYMPH % 27.7 % (24.0-44.0); MEAN CORPUSCULAR HEMOGLOBIN 27.4 pg (27.0-33.0); MEAN CORPUSCULAR HGB CONC 33.7 g/dl (32.0-36.5); MEAN CORPUSCULAR VOLUME 81.4 fl (80.0-96.0); MONO # 0.4 10^3/uL (0.0-0.8); MONO % 8.9 % (2.0-8.0); NEUTROPHILS # 2.4 10^3/uL (1.5-8.5); NEUTROPHILS % 60.1 % (36.0-66.0); PLATELET COUNT, AUTOMATED 171 10^3/uL (150-450); RED BLOOD COUNT 5.15 10^6/uL (4.30-6.10); WHITE BLOOD COUNT 3.9 10^3/uL (4.0-10.0)
[2021-07-25 12:04] LABS: INR 0.96; PROTHROMBIN TIME 13.2 SECONDS (12.7-14.5)
[2021-07-25 12:05] LABS: PARTIAL THROMBOPLASTIN TIME 31.2 SECONDS (25.9-37.0)
[2021-07-25 12:15] LABS: CK-MB VALUE MASS 1.8 NG/ML (<3.6); MB/CK RELATIVE INDEX 0.74 (< OR =4)
[2021-07-25 12:19] LABS: RSV AMPLIFICATION NEGATIVE (NEGATIVE)
[2021-07-25] MEDS ORDERED: MONT10TA97 PO (15:02)
[2021-07-25] MEDS ORDERED: FOLI400T13 PO (15:02)
[2021-07-25] MEDS ORDERED: B-12100010 PO (15:02)
[2021-07-25] MEDS ORDERED: FLUTISP (15:02)
[2021-07-25] MEDS ORDERED: VALS1TAB67 PO (15:02)
[2021-07-25] MEDS ORDERED: IRON65TA2 PO (15:02)
[2021-07-25] MEDS ORDERED: ACET-907 PO (15:02)
[2021-07-25] MEDS ORDERED: SPIR12.9 INH (15:02)
[2021-07-25] MEDS ORDERED: HYDR-3713 PO (15:04)
[2021-07-25] MEDS ORDERED: VENTAER INH (15:04)
[2021-07-25] MEDS ORDERED: OMEP1CAP71 PO (15:08)
[2021-07-25] MEDS ORDERED: HOME MED LIST COMPLETE! XX SCH (15:10)
[2021-07-25] MEDS ORDERED: ALBUTEROL 90 MCG/ACT 8GM HFA INHALER INH PRN (15:15)
[2021-07-25 15:17] LABS: CHOLESTEROL RISK RATIO 2.389 (<5)
[2021-07-25 15:38] LABS: HEMOGLOBIN A1c 5.6 %
[2021-07-25] MEDS: ASPIRIN 325 MG TAB PO SCH (16:17)
[2021-07-25] MEDS: SYMBICORT 160/4.5MCG INHALER 6GM INH SCH (19:27)
[2021-07-25 20:36] LABS: CK-MB VALUE MASS 1.8 NG/ML (<3.6); MB/CK RELATIVE INDEX 0.78 (< OR =4)
[2021-07-25] MEDS ORDERED: ENOXAPARIN 40MG/0.4ML SYRINGE (J1650 PER 10MG) SC SCH (21:00)
[2021-07-25] MEDS ORDERED: MONTELUKAST 10 MG TAB PO SCH (21:00)
[2021-07-26 05:24] LABS: HEMATOCRIT 42.8 % (42.0-52.0); HEMOGLOBIN 14.3 g/dl (13.5-17.5); MEAN CORPUSCULAR HEMOGLOBIN 27.2 pg (27.0-33.0); MEAN CORPUSCULAR HGB CONC 33.4 g/dl (32.0-36.5); MEAN CORPUSCULAR VOLUME 81.4 fl (80.0-96.0); PLATELET COUNT, AUTOMATED 175 10^3/uL (150-450); RED BLOOD COUNT 5.26 10^6/uL (4.30-6.10); WHITE BLOOD COUNT 4.1 10^3/uL (4.0-10.0)
[2021-07-26 05:51] LABS: CK-MB VALUE MASS 1.4 NG/ML (<3.6); MB/CK RELATIVE INDEX 0.54 (< OR =4)
[2021-07-26 06:00] LABS: BLOOD UREA NITROGEN 10 MG/DL (7-18); CARBON DIOXIDE LEVEL 31 MEQ/L (21-32); CHLORIDE LEVEL 104 MEQ/L (98-107); GLOMERULAR FILTRATION RATE > 60.0 (>56); GLUCOSE, FASTING 94 MG/DL (70-100); POTASSIUM SERUM 3.9 MEQ/L (3.5-5.1); SODIUM LEVEL 139 MEQ/L (136-145)
[2021-07-26] MEDS: SYMBICORT 160/4.5MCG INHALER 6GM INH SCH (08:14)
[2021-07-26] MEDS: ASPIRIN 325 MG TAB PO SCH (09:00)
[2021-07-26] MEDS ORDERED: VALSARTAN 80 MG TAB (DIOVAN) PO SCH (09:00)
[2021-07-26] MEDS ORDERED: ZONISAMIDE 50 MG CAP (ZONEGRAN) PO SCH (09:00)
[2021-07-26 10:00] VITALS: BP 118/82
[2021-07-26] MEDS ORDERED: CHLORTHALIDONE 25 MG TAB PO SCH (21:00)
== END 2021-07-26 10:15 | disposition home or self-care (01) ==
LOC: M ED 11:05 → M ED INP 14:02
PROVIDERS: ADMIT Family Medicine; ATTEND Family Medicine
DX: R47.01 Aphasia (principal); H53.8 Other visual disturbances; I10 Essential (primary) hypertension; J45.909 Unspecified asthma, uncomplicated; R51.9 Headache, unspecified; Z79.899 Other long term (current) drug therapy; Z79.51 Long term (current) use of inhaled steroids
CPT/HCPCS: 36415; 70450; 70496; 70498; 70551; 71045; 80047; 80048; 80061; 82550; 82553; 83036; 84484; 85025; 85027; 85610; 85730; 86850; 86900; 86901; 87631; 93005; 93041; 94640; 94664; 94760; 96372; 99285; J1650; Q9967

== ENCOUNTER 2021-07-31 11:00 | Emergency (ER) | payer OTHER ==
[~2021-07-31] VITALS: Ht 177.8 cm; Wt 86.4 kg
[~2021-07-31 11:00] MED LIST changes: +ACET-907 PO; +B-12100010 PO; +FLUTISP; +FOLI400T13 PO; +HYDR-3713 PO; +IRON65TA2 PO; +MONT10TA97 PO; +OMEP1CAP71 PO; +SPIR12.9 INH; +VALS1TAB67 PO
[2021-07-31 11:01] VITALS: BP 142/87
[2021-07-31 14:23] LABS: BASO % 0.5 % (0.0-1.0); EOS # 0.1 10^3/uL (0.0-0.5); EOS % 2.5 % (0.0-3.0); HEMATOCRIT 42.4 % (42.0-52.0); HEMOGLOBIN 14.3 g/dl (13.5-17.5); LYMPH # 1.1 10^3/uL (1.5-5.0); LYMPH % 27.5 % (24.0-44.0); MEAN CORPUSCULAR HEMOGLOBIN 27.3 pg (27.0-33.0); MEAN CORPUSCULAR HGB CONC 33.7 g/dl (32.0-36.5); MEAN CORPUSCULAR VOLUME 80.9 fl (80.0-96.0); MONO # 0.4 10^3/uL (0.0-0.8); MONO % 9.3 % (2.0-8.0); NEUTROPHILS # 2.5 10^3/uL (1.5-8.5); PLATELET COUNT, AUTOMATED 165 10^3/uL (150-450); RED BLOOD COUNT 5.24 10^6/uL (4.30-6.10); WHITE BLOOD COUNT 4.1 10^3/uL (4.0-10.0)
[2021-07-31 15:13] LABS: ALT/SGPT 61 U/L (12-78); BILIRUBIN,TOTAL 0.4 MG/DL (0.2-1.0); BLOOD UREA NITROGEN 13 MG/DL (7-18); CALCIUM LEVEL 9.8 MG/DL (8.5-10.1); CARBON DIOXIDE LEVEL 31 MEQ/L (21-32); CHLORIDE LEVEL 107 MEQ/L (98-107); CREATININE FOR GFR 1.11 MG/DL (0.70-1.30); FREE THYROXINE INDEX 3.4 % (1.4-3.8); GLOMERULAR FILTRATION RATE > 60.0 (>56); GLUCOSE, FASTING 87 MG/DL (70-100); MAGNESIUM LEVEL 2.4 MG/DL (1.8-2.4); POTASSIUM SERUM 4.4 MEQ/L (3.5-5.1); SODIUM LEVEL 143 MEQ/L (136-145); T UPTAKE 36 % (33-40); THYROXINE (T4) 9.5 UG/DL (4.5-12.0); TOTAL PROTEIN 7.4 GM/DL (6.4-8.2)
== END 2021-07-31 15:38 | disposition home or self-care (01) ==
LOC: M ED 11:00
DX: R20.2 Paresthesia of skin (principal); R06.02 Shortness of breath; I10 Essential (primary) hypertension; R51.9 Headache, unspecified; J45.909 Unspecified asthma, uncomplicated; Z79.899 Other long term (current) drug therapy

== ENCOUNTER 2021-08-29 04:05 | Emergency (ER) | payer OTHER ==
[~2021-08-29] VITALS: Ht 177.8 cm; Wt 87.7 kg
[~2021-08-29 04:05] MED LIST changes: -NIFE30TA50 PO; -holter monitor
[2021-08-29] MEDS ORDERED: NIFE30TA50 PO (04:13)
[2021-08-29 07:11] LABS: HEMATOCRIT 41.9 % (42.0-52.0); HEMOGLOBIN 14.1 g/dl (13.5-17.5); MEAN CORPUSCULAR HEMOGLOBIN 27.2 pg (27.0-33.0); MEAN CORPUSCULAR HGB CONC 33.7 g/dl (32.0-36.5); MEAN CORPUSCULAR VOLUME 80.7 fl (80.0-96.0); PLATELET COUNT, AUTOMATED 154 10^3/uL (150-450); RED BLOOD COUNT 5.19 10^6/uL (4.30-6.10); WHITE BLOOD COUNT 5.2 10^3/uL (4.0-10.0)
[2021-08-29 07:42] LABS: CK-MB VALUE MASS 1.3 NG/ML (<3.6); MB/CK RELATIVE INDEX 0.63 (< OR =4)
[2021-08-29 07:43] LABS: ALBUMIN 3.9 GM/DL (3.2-5.2); ALT/SGPT 51 U/L (12-78); BILIRUBIN,DIRECT < 0.1 MG/DL (0.0-0.2); BILIRUBIN,TOTAL 0.3 MG/DL (0.2-1.0); BLOOD UREA NITROGEN 13 MG/DL (7-18); CALCIUM LEVEL 9.1 MG/DL (8.5-10.1); CARBON DIOXIDE LEVEL 28 MEQ/L (21-32); CHLORIDE LEVEL 109 MEQ/L (98-107); CREATININE FOR GFR 1.13 MG/DL (0.70-1.30); FREE T4 0.89 NG/DL (0.76-1.46); GLOMERULAR FILTRATION RATE > 60.0 (>56); GLUCOSE, FASTING 103 MG/DL (70-100); POTASSIUM SERUM 4.2 MEQ/L (3.5-5.1); SODIUM LEVEL 141 MEQ/L (136-145); TOTAL PROTEIN 7.2 GM/DL (6.4-8.2)
[2021-08-29 07:59] LABS: ATYPICAL LYMPH 1 % (0-5); BASOPHILS 1 % (0-1); EOSINOPHILS 8 % (0-3); LYMPHOCYTES 31 % (16-44); MONOCYTES 3 % (0-5); NEUTROPHILS 56 % (28-66)
[2021-08-29 08:03] LABS: PLATELET ESTIMATE NORMAL (NORMAL)
[2021-08-29 08:06] VITALS: BP 118/76
[2021-08-29] MEDS ORDERED: holter monitor (08:39)
[2021-08-29 08:57] LABS: CK-MB VALUE MASS 1.6 NG/ML (<3.6); MB/CK RELATIVE INDEX 0.84 (< OR =4)
== END 2021-08-29 09:10 | disposition home or self-care (01) ==
LOC: M ED 04:05
DX: R00.2 Palpitations (principal); R42 Dizziness and giddiness; I10 Essential (primary) hypertension; J45.909 Unspecified asthma, uncomplicated; G43.909 Migraine, unspecified, not intractable, without status migrainosus; Z79.899 Other long term (current) drug therapy

== ENCOUNTER → 2021-08-29 | Outpatient (CLI) | payer OTHER ==
[~2021-08-29] MED LIST changes: +NIFE30TA50 PO; +holter monitor
== END ==
LOC: M EKG 15:14
PROVIDERS: ATTEND Physician Assistant Medical
DX: R00.2 Palpitations (principal)

== ENCOUNTER 2021-10-11 08:19 | Emergency (ER) | payer OTHER ==
[~2021-10-11] VITALS: Ht 177.8 cm; Wt 90.1 kg
[~2021-10-11 08:19] MED LIST changes: +NIFE30TA50 PO; +holter monitor
[2021-10-11 09:05] LABS: BASO % 0.5 % (0.0-1.0); EOS # 0.2 10^3/uL (0.0-0.5); EOS % 4.1 % (0.0-3.0); HEMATOCRIT 41.6 % (42.0-52.0); HEMOGLOBIN 13.9 g/dl (13.5-17.5); LYMPH # 1.1 10^3/uL (1.5-5.0); MEAN CORPUSCULAR HEMOGLOBIN 27.1 pg (27.0-33.0); MEAN CORPUSCULAR HGB CONC 33.4 g/dl (32.0-36.5); MEAN CORPUSCULAR VOLUME 81.1 fl (80.0-96.0); MONO # 0.3 10^3/uL (0.0-0.8); MONO % 8.2 % (2.0-8.0); NEUTROPHILS # 2.1 10^3/uL (1.5-8.5); NEUTROPHILS % 58.2 % (36.0-66.0); PLATELET COUNT, AUTOMATED 155 10^3/uL (150-450); RED BLOOD COUNT 5.13 10^6/uL (4.30-6.10); WHITE BLOOD COUNT 3.7 10^3/uL (4.0-10.0)
[2021-10-11 09:30] LABS: ALBUMIN 3.8 GM/DL (3.2-5.2); ALT/SGPT 57 U/L (12-78); BILIRUBIN,DIRECT < 0.1 MG/DL (0.0-0.2); BILIRUBIN,TOTAL 0.3 MG/DL (0.2-1.0); BLOOD UREA NITROGEN 10 MG/DL (7-18); CALCIUM LEVEL 9.2 MG/DL (8.5-10.1); CARBON DIOXIDE LEVEL 29 MEQ/L (21-32); CHLORIDE LEVEL 107 MEQ/L (98-107); CREATININE FOR GFR 1.13 MG/DL (0.70-1.30); FREE T4 0.87 NG/DL (0.76-1.46); GLOMERULAR FILTRATION RATE > 60.0 (>56); GLUCOSE, FASTING 97 MG/DL (70-100); LIPASE 133 U/L (73-393); SODIUM LEVEL 137 MEQ/L (136-145); THYROID STIMULATING HORMONE 0.858 uIU/ML (0.358-3.740); TOTAL PROTEIN 7.3 GM/DL (6.4-8.2)
[2021-10-11 10:37] VITALS: BP 130/82
== END 2021-10-11 10:41 | disposition home or self-care (01) ==
LOC: M ED 08:19
DX: R00.2 Palpitations (principal); I10 Essential (primary) hypertension; J45.909 Unspecified asthma, uncomplicated; G43.909 Migraine, unspecified, not intractable, without status migrainosus; Z79.899 Other long term (current) drug therapy

== ENCOUNTER → 2021-11-06 | Outpatient (REF) | payer OTHER | LOC: M WUC 09:24 | PROVIDERS: ATTEND Physician Assistant | DX: J02.9 Acute pharyngitis, unspecified (principal) ==

== ENCOUNTER 2022-02-16 11:34 | Emergency (ER) | payer OTHER ==
[~2022-02-16] VITALS: Ht 177.8 cm; Wt 92.6 kg
[2022-02-16 11:35] VITALS: BP 158/98
[2022-02-16] MEDS ORDERED: ECOT81TA5 PO (11:48)
[2022-02-16 14:15] LABS: BASO % 0.5 % (0.0-1.0); EOS # 0.2 10^3/uL (0.0-0.5); HEMATOCRIT 43.9 % (42.0-52.0); HEMOGLOBIN 14.9 g/dl (13.5-17.5); LYMPH # 1.3 10^3/uL (1.5-5.0); LYMPH % 35.8 % (24.0-44.0); MEAN CORPUSCULAR HEMOGLOBIN 26.9 pg (27.0-33.0); MEAN CORPUSCULAR HGB CONC 33.9 g/dl (32.0-36.5); MEAN CORPUSCULAR VOLUME 79.4 fl (80.0-96.0); MONO # 0.5 10^3/uL (0.0-0.8); MONO % 13.1 % (2.0-8.0); NEUTROPHILS # 1.7 10^3/uL (1.5-8.5); NEUTROPHILS % 46.1 % (36.0-66.0); PLATELET COUNT, AUTOMATED 165 10^3/uL (150-450); RED BLOOD COUNT 5.53 10^6/uL (4.30-6.10); WHITE BLOOD COUNT 3.7 10^3/uL (4.0-10.0)
[2022-02-16 14:41] LABS: ALBUMIN 3.9 G/DL (3.2-5.2); ALKALINE PHOSPHATASE 79 U/L (46-116); ALT/SGPT 105 U/L (7.0-40); AST/SGOT 58 U/L (<34); BILIRUBIN,DIRECT 0.2 MG/DL (<0.4); BILIRUBIN,TOTAL 0.5 MG/DL (0.3-1.2); BLOOD UREA NITROGEN 12 MG/DL (9-23); CALCIUM LEVEL 9.6 MG/DL (8.5-10.1); CARBON DIOXIDE LEVEL 30 MMOL/L (20-31); CHLORIDE LEVEL 101 MMOL/L (98-107); CK-MB VALUE MASS < 1.0 NG/ML (<3.6); CPK CREATINE PHOSPHOKINASE 205 U/L (46-171); GLOMERULAR FILTRATION RATE > 60.0 (>56); GLUCOSE, FASTING 78 MG/DL (60-100); MB/CK RELATIVE INDEX 0.48 (< OR =4); POTASSIUM SERUM 3.9 MMOL/L (3.5-5.1); SODIUM LEVEL 138 MMOL/L (136-145); TOTAL PROTEIN 7.4 G/DL (5.7-8.2)
[2022-02-16 14:43] LABS: FREE T4 1.06 NG/DL (0.89-1.76); THYROID STIMULATING HORMONE 0.375 uIU/ML (0.55-4.78)
[2022-02-16 15:37] LABS: CK-MB VALUE MASS < 1.0 NG/ML (<3.6)
[2022-02-16 15:39] LABS: CPK CREATINE PHOSPHOKINASE 196 U/L (46-171); MB/CK RELATIVE INDEX 0.51 (< OR =4)
== END 2022-02-16 15:34 | disposition home or self-care (01) ==
LOC: M ED 11:34
DX: R53.1 Weakness (principal); I10 Essential (primary) hypertension; K21.9 Gastro-esophageal reflux disease without esophagitis; J45.909 Unspecified asthma, uncomplicated; G43.909 Migraine, unspecified, not intractable, without status migrainosus; Z79.899 Other long term (current) drug therapy; Z79.82 Long term (current) use of aspirin

== ENCOUNTER 2023-06-10 05:55 | Emergency (ER) | payer OTHER ==
[~2023-06-10] VITALS: Ht 180.3 cm; Wt 100.0 kg
[~2023-06-10 05:55] MED LIST changes: +ECOT81TA5 PO; +LIDOCAINE W/EPINEPHRINE 1% 20ML VIAL As Ordered ONE; +MELO15TA28 PO; +NIFE-3 PO; -NIFE30TA50 PO; +POLYSPORIN OPHTH OINT 3.5 GM As Ordered ONE; +VALS1TAB66 PO
[2023-06-10 05:56] VITALS: BP 160/72; TEMP 97.5; O2SAT 100
== END 2023-06-10 11:10 | disposition left against medical advice (07) ==
LOC: M ED 05:55
DX: Z53.21 Procedure and treatment not carried out due to patient leaving prior to being seen by health care provider (principal)

== ENCOUNTER 2023-06-10 20:47 | Emergency (ER) | payer OTHER ==
[~2023-06-10] VITALS: Ht 180.3 cm; Wt 99.7 kg
[~2023-06-10 20:47] MED LIST changes: -LIDOCAINE W/EPINEPHRINE 1% 20ML VIAL As Ordered ONE; -POLYSPORIN OPHTH OINT 3.5 GM As Ordered ONE
[2023-06-10 21:34] LABS: BASO % 0.4 % (0.0-1.0); EOS # 0.2 10^3/uL (0.0-0.5); EOS % 3.6 % (0.0-3.0); HEMATOCRIT 40.4 % (42.0-52.0); HEMOGLOBIN 13.9 g/dl (13.5-17.5); LYMPH # 2.3 10^3/uL (1.5-5.0); LYMPH % 48.5 % (24.0-44.0); MEAN CORPUSCULAR HEMOGLOBIN 26.8 pg (27.0-33.0); MEAN CORPUSCULAR HGB CONC 34.4 g/dl (32.0-36.5); MEAN CORPUSCULAR VOLUME 77.8 fl (80.0-96.0); MONO # 0.4 10^3/uL (0.0-0.8); MONO % 8.2 % (2.0-8.0); NEUTROPHILS # 1.9 10^3/uL (1.5-8.5); NEUTROPHILS % 39.1 % (36.0-66.0); PLATELET COUNT, AUTOMATED 163 10^3/uL (150-450); RED BLOOD COUNT 5.19 10^6/uL (4.30-6.10); WHITE BLOOD COUNT 4.8 10^3/uL (4.0-10.0)
[2023-06-10 22:10] LABS: ALBUMIN 3.8 G/DL (3.2-5.2); ALKALINE PHOSPHATASE 74 U/L (46-116); ALT/SGPT 71 U/L (7.0-40); AST/SGOT 42 U/L (<34); BILIRUBIN,DIRECT 0.1 MG/DL (<0.4); BILIRUBIN,TOTAL 0.4 MG/DL (0.3-1.2); BLOOD UREA NITROGEN 12 MG/DL (9-23); CALCIUM LEVEL 9.9 MG/DL (8.5-10.1); CARBON DIOXIDE LEVEL 28 MMOL/L (20-31); CHLORIDE LEVEL 106 MMOL/L (98-107); CK-MB VALUE MASS 1.8 NG/ML (<3.6); CREATININE FOR GFR 1.05 MG/DL (0.70-1.30); GLOMERULAR FILTRATION RATE > 60.0 (>56); GLUCOSE, FASTING 117 MG/DL (60-100); POTASSIUM SERUM 3.6 MMOL/L (3.5-5.1); SODIUM LEVEL 138 MMOL/L (136-145); TOTAL PROTEIN 6.8 G/DL (5.7-8.2)
[2023-06-10 22:12] LABS: CPK CREATINE PHOSPHOKINASE 223 U/L (46-171)
[2023-06-11 08:41] LABS: CK-MB VALUE MASS 1.6 NG/ML (<3.6); MB/CK RELATIVE INDEX 0.81 (< OR =4)
[2023-06-11 08:47] VITALS: TEMP 96.9; O2SAT 99
[2023-06-11 09:18] VITALS: BP 160/103
== END 2023-06-11 09:30 | disposition home or self-care (01) ==
LOC: M ED 20:47
DX: R42 Dizziness and giddiness (principal); R06.00 Dyspnea, unspecified; J45.909 Unspecified asthma, uncomplicated; I10 Essential (primary) hypertension; Z79.52 Long term (current) use of systemic steroids; Z79.82 Long term (current) use of aspirin; Z79.84 Long term (current) use of oral hypoglycemic drugs; Z79.899 Other long term (current) drug therapy